=== PATIENT | female | born 1995 | race Caucasian/White ===

== ENCOUNTER 2017-10-31 20:00 | Emergency (ER) | payer MEDICAID ==
[2017-10-31 22:42] LABS: APPEARANCE CLEAR (CLEAR); BILIRUBIN NEGATIVE (NEGATIVE); COLOR YELLOW (YELLOW); GLUCOSE NEGATIVE (NEGATIVE); KETONE NEGATIVE (NEGATIVE); NITRITE NEGATIVE (NEGATIVE); PROTEIN NEGATIVE (NEGATIVE); SPECIFIC GRAVITY 1.015 (1.005-1.020); UROBILINOGEN NORMAL (NORMAL)
[2017-10-31 22:43] LABS: BACTERIA FEW /hpf (NONE SEEN); EPITHELIAL CELLS 0-5 /hpf (0-5); RED CELLS - URINE OCC /hpf (0-5); WHITE CELLS - URINE 0-5 /hpf (0-5)
== END 2017-10-31 23:06 | disposition home or self-care (01) ==
LOC: D.ER 20:00
PROVIDERS: Nurse Practitioner Family
DX: G89.18 Other acute postprocedural pain (principal); Z98.890 Other specified postprocedural states

== ENCOUNTER 2017-11-12 18:01 | Emergency (ER) | payer MEDICAID ==
[2017-11-12 19:12] LABS: BASOPHILS 0.2 % (0-2); EOSINOPHILS 4.4 % (0-7); HEMATOCRIT 40.3 % (36.0-48.0); HEMOGLOBIN 13.2 g/dL (12-16); IMMATURE GRANULOCYTES 0.2 % (0-5); MCH 29.7 pg (26.0-34.0); MCHC 32.8 g/dL (31.0-37.0); MCV 90.8 fL (80.0-100.0); MEAN PLATELET VOLUME 11.7 fL (7.4-10.4); MONOCYTES 6.8 % (2-11); NEUTROPHILS 65.4 % (40-80); PLATELET COUNT 255 10x3/uL (130-400); RBC 4.44 10x6/uL (4.00-5.40); RDW 12.8 % (11.5-14.5); WBC 10.9 10x3/uL (4.8-10.8)
[2017-11-12 19:23] LABS: HCG SERUM NEGATIVE (NEGATIVE)
== END 2017-11-12 22:59 | disposition home or self-care (01) ==
LOC: D.ER 18:01
PROVIDERS: Family Medicine
DX: R10.9 Unspecified abdominal pain (principal); K58.9 Irritable bowel syndrome, unspecified; F17.200 Nicotine dependence, unspecified, uncomplicated

== ENCOUNTER 2017-11-15 21:19 | Emergency (ER) | payer MEDICAID ==
[2017-11-15 22:14] LABS: BASOPHILS 0.2 % (0-2); EOSINOPHILS 5.4 % (0-7); HEMATOCRIT 38.2 % (36.0-48.0); HEMOGLOBIN 12.5 g/dL (12-16); IMMATURE GRANULOCYTES 0.1 % (0-5); LYMPHOCYTES 28.7 % (15-50); MCH 29.8 pg (26.0-34.0); MCHC 32.7 g/dL (31.0-37.0); MEAN PLATELET VOLUME 11.4 fL (7.4-10.4); MONOCYTES 5.2 % (2-11); NEUTROPHILS 60.4 % (40-80); PLATELET COUNT 242 10x3/uL (130-400); WBC 9.2 10x3/uL (4.8-10.8)
[2017-11-15 22:30] LABS: APPEARANCE CLEAR (CLEAR); BILIRUBIN NEGATIVE (NEGATIVE); COLOR YELLOW (YELLOW); GLUCOSE NEGATIVE (NEGATIVE); KETONE NEGATIVE (NEGATIVE); NITRITE NEGATIVE (NEGATIVE); PROTEIN NEGATIVE (NEGATIVE); SPECIFIC GRAVITY 1.015 (1.005-1.020); UROBILINOGEN NORMAL (NORMAL)
[2017-11-15 22:31] LABS: HCG SERUM NEGATIVE (NEGATIVE)
[2017-11-15 22:33] LABS: BACTERIA FEW /hpf (NONE SEEN)
[2017-11-16 00:57] LABS: UDS - AMPHET NEGATIVE QUAL (NEGATIVE); UDS - BARB NEGATIVE QUAL (NEGATIVE); UDS - BENZO NEGATIVE QUAL (NEGATIVE); UDS - COCAINE NEGATIVE QUAL (NEGATIVE); UDS - OPIATE POSITIVE QUAL (NEGATIVE); UDS - PCP NEGATIVE QUAL (NEGATIVE); UDS - THC NEGATIVE QUAL (NEGATIVE)
[2017-11-16 00:58] LABS: ALBUMIN 3.6 g/dL (3.4-5.0); ALKALINE PHOSPHATASE 101 U/L (46-116); ALT (SGPT) 37 U/L (10-68); CALC OSMOLALITY 279 mosm/kg (275-300); CALCIUM 8.6 mg/dL (8.5-10.1); CARBON DIOXIDE 28.7 mmol/L (21.0-32.0); CHLORIDE - SERUM 104 mmol/L (98-107); CREATININE - SERUM 0.8 mg/dL (0.6-1.3); GLUCOSE 95 mg/dL (74-106); LIPASE 103 U/L (73-393); POTASSIUM - SERUM 3.9 mmol/L (3.5-5.1); PROTEIN - SERUM 7.1 g/dL (6.4-8.2); SODIUM 140 mmol/L (136-145); UREA NITROGEN 14 mg/dL (7-18); eGFR NON AFRICAN AMERICAN > 90 mL/min (90-120)
== END 2017-11-16 03:30 | disposition home or self-care (01) ==
LOC: D.ER 21:19
PROVIDERS: Family Medicine
DX: R10.9 Unspecified abdominal pain (principal)

== ENCOUNTER 2017-12-04 08:21 | Emergency (ER) | payer MEDICAID ==
[2017-12-04 09:05] LABS: BASOPHILS 0.1 % (0-2); EOSINOPHILS 2.4 % (0-7); HEMATOCRIT 40.9 % (36.0-48.0); HEMOGLOBIN 13.5 g/dL (12-16); IMMATURE GRANULOCYTES 0.2 % (0-5); LYMPHOCYTES 22.7 % (15-50); MCH 29.5 pg (26.0-34.0); MCV 89.5 fL (80.0-100.0); MEAN PLATELET VOLUME 11.4 fL (7.4-10.4); MONOCYTES 7.8 % (2-11); NEUTROPHILS 66.8 % (40-80); PLATELET COUNT 278 10x3/uL (130-400); RBC 4.57 10x6/uL (4.00-5.40); WBC 8.6 10x3/uL (4.8-10.8)
[2017-12-04 09:26] LABS: APPEARANCE CLEAR (CLEAR); BILIRUBIN NEGATIVE (NEGATIVE); COLOR YELLOW (YELLOW); GLUCOSE NEGATIVE (NEGATIVE); KETONE NEGATIVE (NEGATIVE); NITRITE NEGATIVE (NEGATIVE); PROTEIN NEGATIVE (NEGATIVE); UROBILINOGEN NORMAL (NORMAL)
== END 2017-12-04 09:58 | disposition home or self-care (01) ==
LOC: D.ER 08:21
PROVIDERS: Emergency Medicine
DX: R11.10 Vomiting, unspecified (principal); R19.7 Diarrhea, unspecified; R10.9 Unspecified abdominal pain

== ENCOUNTER 2017-12-09 19:23 | Emergency (ER) | payer SELFPAY ==
[2017-12-09 20:18] LABS: BASOPHILS 0.3 % (0-2); EOSINOPHILS 3.8 % (0-7); HEMATOCRIT 42.2 % (36.0-48.0); HEMOGLOBIN 13.8 g/dL (12-16); IMMATURE GRANULOCYTES 0.1 % (0-5); LYMPHOCYTES 26.2 % (15-50); MCH 29.3 pg (26.0-34.0); MCHC 32.7 g/dL (31.0-37.0); MCV 89.6 fL (80.0-100.0); MEAN PLATELET VOLUME 11.7 fL (7.4-10.4); NEUTROPHILS 62.6 % (40-80); PLATELET COUNT 247 10x3/uL (130-400); RBC 4.71 10x6/uL (4.00-5.40); RDW 12.7 % (11.5-14.5)
[2017-12-09 20:53] LABS: APPEARANCE CLEAR (CLEAR); BILIRUBIN NEGATIVE (NEGATIVE); COLOR YELLOW (YELLOW); GLUCOSE NEGATIVE (NEGATIVE); KETONE NEGATIVE (NEGATIVE); NITRITE NEGATIVE (NEGATIVE); PROTEIN NEGATIVE (NEGATIVE); SPECIFIC GRAVITY 1.015 (1.005-1.020); UROBILINOGEN NORMAL (NORMAL)
[2017-12-09 21:03] LABS: HCG URINE NEGATIVE (NEGATIVE)
== END 2017-12-09 21:57 | disposition home or self-care (01) ==
LOC: D.ER 19:23
PROVIDERS: Family Medicine; Nurse Practitioner Family
DX: R10.9 Unspecified abdominal pain (principal); K59.00 Constipation, unspecified

== ENCOUNTER 2017-12-20 18:55 | Emergency (ER) | payer MEDICAID | END 2017-12-20 20:19 | disposition left against medical advice (07) | LOC: D.ER 18:55 | DX: R04.0 Epistaxis (principal) ==

== ENCOUNTER 2017-12-26 19:01 | Emergency (ER) | payer MEDICAID ==
[2017-12-26 19:36] LABS: BASOPHILS 0.1 % (0-2); HEMATOCRIT 40.9 % (36.0-48.0); HEMOGLOBIN 13.6 g/dL (12-16); IMMATURE GRANULOCYTES 0.2 % (0-5); LYMPHOCYTES 23.4 % (15-50); MCH 28.9 pg (26.0-34.0); MCHC 33.3 g/dL (31.0-37.0); MCV 86.8 fL (80.0-100.0); MEAN PLATELET VOLUME 11.3 fL (7.4-10.4); MONOCYTES 6.1 % (2-11); NEUTROPHILS 67.2 % (40-80); PLATELET COUNT 258 10x3/uL (130-400); RBC 4.71 10x6/uL (4.00-5.40); RDW 12.7 % (11.5-14.5); WBC 11.2 10x3/uL (4.8-10.8)
[2017-12-26 19:40] LABS: APPEARANCE HAZY (CLEAR); BILIRUBIN NEGATIVE (NEGATIVE); COLOR YELLOW (YELLOW); GLUCOSE NEGATIVE (NEGATIVE); KETONE NEGATIVE (NEGATIVE); NITRITE NEGATIVE (NEGATIVE); PROTEIN NEGATIVE (NEGATIVE); UROBILINOGEN NORMAL (NORMAL)
[2017-12-26 19:41] LABS: BACTERIA NONE SEEN /hpf (NONE SEEN); EPITHELIAL CELLS 0-5 /hpf (0-5); RED CELLS - URINE >50 /hpf (0-5); WHITE CELLS - URINE 0-5 /hpf (0-5)
[2017-12-26 19:48] LABS: ALBUMIN 3.8 g/dL (3.4-5.0); ALKALINE PHOSPHATASE 106 U/L (46-116); ALT (SGPT) 26 U/L (10-68); BILIRUBIN - TOTAL 0.19 mg/dL (0.2-1.3); CALC OSMOLALITY 277 mosm/kg (275-300); CALCIUM 9.1 mg/dL (8.5-10.1); CARBON DIOXIDE 29.5 mmol/L (21.0-32.0); CHLORIDE - SERUM 104 mmol/L (98-107); CREATININE - SERUM 0.7 mg/dL (0.6-1.3); GLUCOSE 91 mg/dL (74-106); POTASSIUM - SERUM 3.6 mmol/L (3.5-5.1); PROTEIN - SERUM 7.8 g/dL (6.4-8.2); SODIUM 140 mmol/L (136-145); UREA NITROGEN 9 mg/dL (7-18); eGFR NON AFRICAN AMERICAN > 90 mL/min (90-120)
[2017-12-26 19:49] LABS: HCG SERUM NEGATIVE (NEGATIVE)
[2017-12-26 22:34] LABS: APPEARANCE CLEAR (CLEAR); BILIRUBIN NEGATIVE (NEGATIVE); COLOR YELLOW (YELLOW); GLUCOSE NEGATIVE (NEGATIVE); KETONE NEGATIVE (NEGATIVE); NITRITE NEGATIVE (NEGATIVE); PROTEIN NEGATIVE (NEGATIVE); SPECIFIC GRAVITY 1.015 (1.005-1.020); UROBILINOGEN NORMAL (NORMAL)
== END 2017-12-26 22:59 | disposition home or self-care (01) ==
LOC: D.ER 19:01
PROVIDERS: Emergency Medicine
DX: N80.9 Endometriosis, unspecified (principal); F17.200 Nicotine dependence, unspecified, uncomplicated

== ENCOUNTER 2018-01-09 10:12 | Emergency (ER) | payer MEDICAID ==
[2018-01-09 11:12] LABS: BASOPHILS 0.3 % (0-2); EOSINOPHILS 2.9 % (0-7); HEMATOCRIT 38.8 % (36.0-48.0); HEMOGLOBIN 12.8 g/dL (12-16); IMMATURE GRANULOCYTES 0.1 % (0-5); LYMPHOCYTES 24.5 % (15-50); MCH 28.7 pg (26.0-34.0); MEAN PLATELET VOLUME 11.4 fL (7.4-10.4); MONOCYTES 7.4 % (2-11); NEUTROPHILS 64.8 % (40-80); PLATELET COUNT 234 10x3/uL (130-400); RBC 4.46 10x6/uL (4.00-5.40); WBC 7.6 10x3/uL (4.8-10.8)
[2018-01-09 11:20] LABS: ALBUMIN 3.6 g/dL (3.4-5.0); ALKALINE PHOSPHATASE 101 U/L (46-116); ALT (SGPT) 36 U/L (10-68); BILIRUBIN - TOTAL 0.23 mg/dL (0.2-1.3); CALC OSMOLALITY 279 mosm/kg (275-300); CALCIUM 8.6 mg/dL (8.5-10.1); CARBON DIOXIDE 24.2 mmol/L (21.0-32.0); CHLORIDE - SERUM 104 mmol/L (98-107); CREATININE - SERUM 0.8 mg/dL (0.6-1.3); GLUCOSE 101 mg/dL (74-106); POTASSIUM - SERUM 3.9 mmol/L (3.5-5.1); PROTEIN - SERUM 7.2 g/dL (6.4-8.2); SODIUM 141 mmol/L (136-145); UREA NITROGEN 9 mg/dL (7-18); eGFR NON AFRICAN AMERICAN > 90 mL/min (90-120)
[2018-01-09 11:26] LABS: APPEARANCE SLT CLOUDY (CLEAR); BILIRUBIN NEGATIVE (NEGATIVE); COLOR YELLOW (YELLOW); GLUCOSE NEGATIVE (NEGATIVE); KETONE NEGATIVE (NEGATIVE); NITRITE NEGATIVE (NEGATIVE); PROTEIN NEGATIVE (NEGATIVE); SPECIFIC GRAVITY 1.015 (1.005-1.020); UROBILINOGEN NORMAL (NORMAL)
[2018-01-09 11:27] LABS: BACTERIA MODERATE /hpf (NONE SEEN); MUCUS >1+ /lpf (NONE SEEN); RED CELLS - URINE RARE /hpf (0-5)
[2018-01-09 11:29] LABS: HCG - QUANTITATIVE (MATERNAL) 1 mIU/mL; LIPASE 59 U/L (73-393)
== END 2018-01-09 12:46 | disposition home or self-care (01) ==
LOC: D.ER 10:12
PROVIDERS: Emergency Medicine
DX: R10.11 Right upper quadrant pain (principal); N39.0 Urinary tract infection, site not specified; F17.200 Nicotine dependence, unspecified, uncomplicated

== ENCOUNTER 2018-01-14 17:14 | Emergency (ER) | payer MEDICAID | END 2018-01-14 19:03 | disposition left against medical advice (07) | LOC: D.ER 17:14 | DX: R51 Headache (principal) ==

== ENCOUNTER 2018-01-20 21:28 | Emergency (ER) | payer MEDICAID ==
[2018-01-20 22:43] LABS: BASOPHILS 0.2 % (0-2); EOSINOPHILS 3.4 % (0-7); HEMATOCRIT 41.6 % (36.0-48.0); HEMOGLOBIN 13.9 g/dL (12-16); IMMATURE GRANULOCYTES 0.2 % (0-5); LYMPHOCYTES 34.1 % (15-50); MCHC 33.4 g/dL (31.0-37.0); MCV 86.8 fL (80.0-100.0); MEAN PLATELET VOLUME 11.5 fL (7.4-10.4); MONOCYTES 7.8 % (2-11); NEUTROPHILS 54.3 % (40-80); PLATELET COUNT 241 10x3/uL (130-400); RBC 4.79 10x6/uL (4.00-5.40); RDW 13.5 % (11.5-14.5); WBC 8.6 10x3/uL (4.8-10.8)
[2018-01-20 22:45] LABS: APPEARANCE CLEAR (CLEAR); BILIRUBIN NEGATIVE (NEGATIVE); COLOR YELLOW (YELLOW); GLUCOSE NEGATIVE (NEGATIVE); KETONE NEGATIVE (NEGATIVE); NITRITE NEGATIVE (NEGATIVE); PROTEIN NEGATIVE (NEGATIVE); SPECIFIC GRAVITY 1.015 (1.005-1.020); UROBILINOGEN NORMAL (NORMAL)
[2018-01-20 22:54] LABS: HCG SERUM NEGATIVE (NEGATIVE)
[2018-01-20 23:01] LABS: ALBUMIN 3.9 g/dL (3.4-5.0); ALKALINE PHOSPHATASE 112 U/L (46-116); ALT (SGPT) 32 U/L (10-68); AMYLASE - SERUM 33 U/L (25-115); BILIRUBIN - TOTAL 0.25 mg/dL (0.2-1.3); CALC OSMOLALITY 280 mosm/kg (275-300); CARBON DIOXIDE 27.7 mmol/L (21.0-32.0); CHLORIDE - SERUM 103 mmol/L (98-107); CREATININE - SERUM 0.7 mg/dL (0.6-1.3); GLUCOSE 89 mg/dL (74-106); LIPASE 90 U/L (73-393); POTASSIUM - SERUM 3.7 mmol/L (3.5-5.1); PROTEIN - SERUM 7.9 g/dL (6.4-8.2); SODIUM 141 mmol/L (136-145); UREA NITROGEN 14 mg/dL (7-18); eGFR NON AFRICAN AMERICAN > 90 mL/min (90-120)
== END 2018-01-21 02:27 | disposition home or self-care (01) ==
LOC: D.ER 21:28
PROVIDERS: Family Medicine
DX: N83.209 Unspecified ovarian cyst, unspecified side (principal); K59.00 Constipation, unspecified

== ENCOUNTER 2018-01-27 20:44 | Emergency (ER) | payer MEDICAID | END 2018-01-27 21:55 | disposition home or self-care (01) | LOC: D.ER 20:44 | DX: L02.31 Cutaneous abscess of buttock (principal); F17.200 Nicotine dependence, unspecified, uncomplicated ==

== ENCOUNTER 2018-02-05 23:36 | Emergency (ER) | payer MEDICAID | END 2018-02-06 01:07 | disposition home or self-care (01) | LOC: D.ER 23:36 | DX: R07.89 Other chest pain (principal); F17.200 Nicotine dependence, unspecified, uncomplicated ==

== ENCOUNTER 2018-02-06 14:19 | Emergency (ER) | payer MEDICAID | END 2018-02-06 16:13 | disposition left against medical advice (07) | LOC: D.ER 14:19 | DX: Z02.9 Encounter for administrative examinations, unspecified (principal) ==

== ENCOUNTER 2018-02-09 19:11 | Emergency (ER) | payer MEDICAID ==
[2018-02-09 19:38] LABS: BASOPHILS 0.1 % (0-2); EOSINOPHILS 2.9 % (0-7); HEMATOCRIT 42.2 % (36.0-48.0); HEMOGLOBIN 14.1 g/dL (12-16); IMMATURE GRANULOCYTES 0.1 % (0-5); LYMPHOCYTES 23.5 % (15-50); MCHC 33.4 g/dL (31.0-37.0); MCV 86.7 fL (80.0-100.0); MEAN PLATELET VOLUME 11.5 fL (7.4-10.4); NEUTROPHILS 64.4 % (40-80); PLATELET COUNT 225 10x3/uL (130-400); RBC 4.87 10x6/uL (4.00-5.40); RDW 13.5 % (11.5-14.5); WBC 8.7 10x3/uL (4.8-10.8)
[2018-02-09 19:53] LABS: ALKALINE PHOSPHATASE 108 U/L (46-116); ALT (SGPT) 38 U/L (10-68); CALC OSMOLALITY 280 mosm/kg (275-300); CALCIUM 9.8 mg/dL (8.5-10.1); CHLORIDE - SERUM 106 mmol/L (98-107); CREATININE - SERUM 0.9 mg/dL (0.6-1.3); GLUCOSE 87 mg/dL (74-106); POTASSIUM - SERUM 4.2 mmol/L (3.5-5.1); PROTEIN - SERUM 7.9 g/dL (6.4-8.2); SODIUM 141 mmol/L (136-145); UREA NITROGEN 16 mg/dL (7-18); eGFR NON AFRICAN AMERICAN 83 mL/min (90-120)
[2018-02-09 21:22] LABS: APPEARANCE HAZY (CLEAR); BILIRUBIN NEGATIVE (NEGATIVE); COLOR YELLOW (YELLOW); GLUCOSE NEGATIVE (NEGATIVE); KETONE NEGATIVE (NEGATIVE); NITRITE NEGATIVE (NEGATIVE); PROTEIN NEGATIVE (NEGATIVE); SPECIFIC GRAVITY 1.015 (1.005-1.020); UROBILINOGEN NORMAL (NORMAL)
[2018-02-09 21:24] LABS: HCG URINE NEGATIVE (NEGATIVE)
[2018-02-09 21:28] LABS: UDS - AMPHET NEGATIVE QUAL (NEGATIVE); UDS - BARB NEGATIVE QUAL (NEGATIVE); UDS - BENZO NEGATIVE QUAL (NEGATIVE); UDS - COCAINE NEGATIVE QUAL (NEGATIVE); UDS - OPIATE NEGATIVE QUAL (NEGATIVE); UDS - PCP NEGATIVE QUAL (NEGATIVE); UDS - THC NEGATIVE QUAL (NEGATIVE)
== END 2018-02-09 22:24 | disposition home or self-care (01) ==
LOC: D.ER 19:11
PROVIDERS: Family Medicine
DX: K59.00 Constipation, unspecified (principal); F17.200 Nicotine dependence, unspecified, uncomplicated

== ENCOUNTER 2018-02-19 22:45 | Emergency (ER) | payer MEDICAID ==
[2018-02-19 23:26] LABS: APPEARANCE HAZY (CLEAR); BILIRUBIN NEGATIVE (NEGATIVE); COLOR YELLOW (YELLOW); GLUCOSE NEGATIVE (NEGATIVE); KETONE NEGATIVE (NEGATIVE); NITRITE NEGATIVE (NEGATIVE); PROTEIN 1+ mg/dL (NEGATIVE); UROBILINOGEN NORMAL (NORMAL)
[2018-02-19 23:26] LABS: HEMATOCRIT 38.4 % (36.0-48.0); HEMOGLOBIN 13.2 g/dL (12-16); LYMPHOCYTES 28.9 % (15-50); MCH 28.9 pg (26.0-34.0); MCHC 34.4 g/dL (31.0-37.0); MCV 84.2 fL (80.0-100.0); MEAN PLATELET VOLUME 11.4 fL (7.4-10.4); NEUTROPHILS 64.3 % (40-80); PLATELET COUNT 185 10x3/uL (130-400); RBC 4.56 10x6/uL (4.00-5.40); RDW 13.7 % (11.5-14.5); WBC 10.5 10x3/uL (4.8-10.8)
[2018-02-19 23:27] LABS: UDS - AMPHET NEGATIVE QUAL (NEGATIVE); UDS - BARB NEGATIVE QUAL (NEGATIVE); UDS - BENZO NEGATIVE QUAL (NEGATIVE); UDS - COCAINE NEGATIVE QUAL (NEGATIVE); UDS - OPIATE NEGATIVE QUAL (NEGATIVE); UDS - PCP NEGATIVE QUAL (NEGATIVE); UDS - THC NEGATIVE QUAL (NEGATIVE)
[2018-02-19 23:28] LABS: BACTERIA MODERATE /hpf (NONE SEEN); EPITHELIAL CELLS 0-5 /hpf (0-5); MUCUS >1+ /lpf (NONE SEEN); RED CELLS - URINE NONE SEEN /hpf (0-5); WHITE CELLS - URINE 0-5 /hpf (0-5)
[2018-02-19 23:39] LABS: HCG URINE NEGATIVE (NEGATIVE)
[2018-02-19 23:41] LABS: ALBUMIN 3.6 g/dL (3.4-5.0); ALKALINE PHOSPHATASE 98 U/L (46-116); ALT (SGPT) 30 U/L (10-68); BILIRUBIN - TOTAL 0.37 mg/dL (0.2-1.3); CALC OSMOLALITY 280 mosm/kg (275-300); CALCIUM 8.7 mg/dL (8.5-10.1); CARBON DIOXIDE 28.1 mmol/L (21.0-32.0); CHLORIDE - SERUM 103 mmol/L (98-107); CREATININE - SERUM 0.7 mg/dL (0.6-1.3); GLUCOSE 99 mg/dL (74-106); POTASSIUM - SERUM 3.6 mmol/L (3.5-5.1); PROTEIN - SERUM 7.2 g/dL (6.4-8.2); SODIUM 141 mmol/L (136-145); UREA NITROGEN 12 mg/dL (7-18); eGFR NON AFRICAN AMERICAN > 90 mL/min (90-120)
[2018-02-20 00:08] LABS: AMYLASE - SERUM 35 U/L (25-115); LIPASE 76 U/L (73-393)
== END 2018-02-20 01:42 | disposition home or self-care (01) ==
LOC: D.ER 22:45
PROVIDERS: Family Medicine; Nurse Practitioner Family
DX: K59.00 Constipation, unspecified (principal); R11.0 Nausea; N83.202 Unspecified ovarian cyst, left side

== ENCOUNTER 2018-02-21 19:25 | Emergency (ER) | payer MEDICAID ==
[2018-02-21 19:52] LABS: APPEARANCE CLEAR (CLEAR); BILIRUBIN NEGATIVE (NEGATIVE); COLOR YELLOW (YELLOW); GLUCOSE NEGATIVE (NEGATIVE); KETONE NEGATIVE (NEGATIVE); NITRITE NEGATIVE (NEGATIVE); PROTEIN NEGATIVE (NEGATIVE); SPECIFIC GRAVITY 1.015 (1.005-1.020); UROBILINOGEN NORMAL (NORMAL)
[2018-02-21 20:15] LABS: BASOPHILS 0.2 % (0-2); EOSINOPHILS 3.6 % (0-7); HEMATOCRIT 38.3 % (36.0-48.0); HEMOGLOBIN 12.7 g/dL (12-16); IMMATURE GRANULOCYTES 0.2 % (0-5); LYMPHOCYTES 24.5 % (15-50); MCH 28.5 pg (26.0-34.0); MCHC 33.2 g/dL (31.0-37.0); MCV 85.9 fL (80.0-100.0); MEAN PLATELET VOLUME 11.5 fL (7.4-10.4); MONOCYTES 8.8 % (2-11); NEUTROPHILS 62.7 % (40-80); PLATELET COUNT 179 10x3/uL (130-400); RBC 4.46 10x6/uL (4.00-5.40); RDW 13.7 % (11.5-14.5); WBC 8.1 10x3/uL (4.8-10.8)
[2018-02-21 20:24] LABS: HCG SERUM NEGATIVE (NEGATIVE)
== END 2018-02-21 21:31 | disposition home or self-care (01) ==
LOC: D.ER 19:25
PROVIDERS: Family Medicine
DX: R10.32 Left lower quadrant pain (principal); F17.200 Nicotine dependence, unspecified, uncomplicated

== ENCOUNTER 2018-02-28 01:08 | Emergency (ER) | payer MEDICAID | END 2018-02-28 03:10 | disposition home or self-care (01) | LOC: D.ER 01:08 | DX: J06.9 Acute upper respiratory infection, unspecified (principal); F17.200 Nicotine dependence, unspecified, uncomplicated ==

== ENCOUNTER 2018-03-03 22:56 | Emergency (ER) | payer MEDICAID ==
[2018-03-04 00:01] LABS: AMORPHOUS SEDIMENT >1+ /lpf (NONE SEEN); APPEARANCE TURBID (CLEAR); BACTERIA NONE SEEN /hpf (NONE SEEN); BILIRUBIN NEGATIVE (NEGATIVE); COLOR YELLOW (YELLOW); EPITHELIAL CELLS 0-5 /hpf (0-5); GLUCOSE NEGATIVE (NEGATIVE); KETONE NEGATIVE (NEGATIVE); NITRITE NEGATIVE (NEGATIVE); PROTEIN TRACE mg/dL (NEGATIVE); RED CELLS - URINE 0-5 /hpf (0-5); UROBILINOGEN NORMAL (NORMAL); WHITE CELLS - URINE 0-5 /hpf (0-5)
[2018-03-04 00:02] LABS: BASOPHILS 0.2 % (0-2); EOSINOPHILS 1.5 % (0-7); HEMATOCRIT 42.5 % (36.0-48.0); HEMOGLOBIN 14.4 g/dL (12-16); LYMPHOCYTES 20.8 % (15-50); MCHC 33.9 g/dL (31.0-37.0); MCV 85.7 fL (80.0-100.0); MEAN PLATELET VOLUME 11.7 fL (7.4-10.4); MONOCYTES 9.1 % (2-11); NEUTROPHILS 68.4 % (40-80); PLATELET COUNT 226 10x3/uL (130-400); RBC 4.96 10x6/uL (4.00-5.40); WBC 4.5 10x3/uL (4.8-10.8)
[2018-03-04 00:06] LABS: HCG URINE NEGATIVE (NEGATIVE)
[2018-03-04 00:21] LABS: ALBUMIN 3.8 g/dL (3.4-5.0); ALKALINE PHOSPHATASE 89 U/L (46-116); ALT (SGPT) 32 U/L (10-68); BILIRUBIN - TOTAL 0.49 mg/dL (0.2-1.3); CALC OSMOLALITY 274 mosm/kg (275-300); CALCIUM 8.9 mg/dL (8.5-10.1); CARBON DIOXIDE 27.1 mmol/L (21.0-32.0); CHLORIDE - SERUM 102 mmol/L (98-107); CREATININE - SERUM 0.8 mg/dL (0.6-1.3); GLUCOSE 100 mg/dL (74-106); POTASSIUM - SERUM 3.7 mmol/L (3.5-5.1); PROTEIN - SERUM 7.9 g/dL (6.4-8.2); SODIUM 137 mmol/L (136-145); UREA NITROGEN 15 mg/dL (7-18); eGFR NON AFRICAN AMERICAN > 90 mL/min (90-120)
== END 2018-03-04 01:10 | disposition home or self-care (01) ==
LOC: D.ER 22:56
PROVIDERS: Nurse Practitioner Family
DX: A08.4 Viral intestinal infection, unspecified (principal); F17.200 Nicotine dependence, unspecified, uncomplicated; R11.2 Nausea with vomiting, unspecified

== ENCOUNTER 2018-03-10 23:45 | Emergency (ER) | payer MEDICAID ==
[2018-03-11 00:48] LABS: BASOPHILS 0.4 % (0-2); EOSINOPHILS 2.4 % (0-7); HEMATOCRIT 40.4 % (36.0-48.0); HEMOGLOBIN 13.4 g/dL (12-16); IMMATURE GRANULOCYTES 0.1 % (0-5); LYMPHOCYTES 30.6 % (15-50); MCH 28.7 pg (26.0-34.0); MCHC 33.2 g/dL (31.0-37.0); MCV 86.5 fL (80.0-100.0); MEAN PLATELET VOLUME 11.8 fL (7.4-10.4); MONOCYTES 6.8 % (2-11); NEUTROPHILS 59.7 % (40-80); PLATELET COUNT 254 10x3/uL (130-400); RBC 4.67 10x6/uL (4.00-5.40); RDW 13.8 % (11.5-14.5)
[2018-03-11 00:50] LABS: APPEARANCE CLEAR (CLEAR); BILIRUBIN NEGATIVE (NEGATIVE); COLOR YELLOW (YELLOW); GLUCOSE NEGATIVE (NEGATIVE); KETONE SMALL mg/dL (NEGATIVE); NITRITE NEGATIVE (NEGATIVE); PROTEIN NEGATIVE (NEGATIVE); UROBILINOGEN NORMAL (NORMAL)
[2018-03-11 00:54] LABS: HCG SERUM NEGATIVE (NEGATIVE)
[2018-03-11 01:04] LABS: ALBUMIN 3.7 g/dL (3.4-5.0); ALKALINE PHOSPHATASE 87 U/L (46-116); ALT (SGPT) 36 U/L (10-68); BILIRUBIN - TOTAL 0.33 mg/dL (0.2-1.3); CALC OSMOLALITY 282 mosm/kg (275-300); CALCIUM 9.3 mg/dL (8.5-10.1); CARBON DIOXIDE 30.6 mmol/L (21.0-32.0); CHLORIDE - SERUM 103 mmol/L (98-107); CREATININE - SERUM 0.7 mg/dL (0.6-1.3); GLUCOSE 125 mg/dL (74-106); POTASSIUM - SERUM 3.6 mmol/L (3.5-5.1); PROTEIN - SERUM 7.7 g/dL (6.4-8.2); SODIUM 142 mmol/L (136-145); UREA NITROGEN 9 mg/dL (7-18); eGFR NON AFRICAN AMERICAN > 90 mL/min (90-120)
== END 2018-03-11 01:31 | disposition home or self-care (01) ==
LOC: D.ER 23:45
PROVIDERS: Family Medicine
DX: N76.0 Acute vaginitis (principal); F17.200 Nicotine dependence, unspecified, uncomplicated

== ENCOUNTER 2018-03-22 18:55 | Emergency (ER) | payer MEDICAID ==
[~2018-03-22] VITALS: Ht 157.5 cm; Wt 81.8 kg
[2018-03-22 19:20] VITALS: Ht 157.5 cm; Wt 81.8 kg
[2018-03-22] MEDS ORDERED: PHENAZOPYRIDIN100 MG PO (19:23)
[2018-03-22 19:41] LABS: HCG URINE NEGATIVE (NEGATIVE)
[2018-03-22 19:46] LABS: APPEARANCE CLEAR (CLEAR); BILIRUBIN NEGATIVE (NEGATIVE); COLOR YELLOW (YELLOW); EPITHELIAL CELLS 0-5 /hpf (0-5); GLUCOSE NEGATIVE (NEGATIVE); KETONE NEGATIVE (NEGATIVE); NITRITE NEGATIVE (NEGATIVE); PROTEIN NEGATIVE (NEGATIVE); RED CELLS - URINE 0-5 /hpf (0-5); UROBILINOGEN NORMAL (NORMAL)
[2018-03-22 19:47] LABS: BACTERIA MANY /hpf (NONE SEEN)
[2018-03-22] MEDS ORDERED: TORADOL10 MG PO (22:39)
[2018-03-22] MEDS ORDERED: MACROBID100 MG PO (22:39)
[2018-03-23 04:55] VITALS: BP 119/75
[2018-03-27 10:20] LABS: CHLAMYDIA TRACHOMATIS, NAA Negative (Negative)
== END 2018-03-22 23:54 | disposition home or self-care (01) ==
LOC: D.ER 18:55
PROVIDERS: Family Medicine
DX: N39.0 Urinary tract infection, site not specified (principal); N76.0 Acute vaginitis; B96.89 Other specified bacterial agents as the cause of diseases classified elsewhere; F17.200 Nicotine dependence, unspecified, uncomplicated

== ENCOUNTER 2018-04-13 20:47 | Emergency (ER) | payer MEDICAID ==
[~2018-04-13] VITALS: Ht 157.5 cm; Wt 84.5 kg
[~2018-04-13 20:47] MED LIST: MACROBID100 MG PO; PHENAZOPYRIDIN100 MG PO; TORADOL10 MG PO
[2018-04-13 20:59] VITALS: Ht 157.5 cm; Wt 84.5 kg
[2018-04-13 22:16] LABS: BASOPHILS 0.1 % (0-2); EOSINOPHILS 1.8 % (0-7); HEMATOCRIT 42.6 % (36.0-48.0); HEMOGLOBIN 14.4 g/dL (12-16); IMMATURE GRANULOCYTES 0.2 % (0-5); LYMPHOCYTES 30.4 % (15-50); MCH 29.1 pg (26.0-34.0); MCHC 33.8 g/dL (31.0-37.0); MCV 86.1 fL (80.0-100.0); MEAN PLATELET VOLUME 12.5 fL (7.4-10.4); MONOCYTES 8.3 % (2-11); NEUTROPHILS 59.2 % (40-80); PLATELET COUNT 216 10x3/uL (130-400); RBC 4.95 10x6/uL (4.00-5.40); RDW 13.5 % (11.5-14.5); WBC 8.7 10x3/uL (4.8-10.8)
[2018-04-13 22:30] LABS: ALBUMIN 4.2 g/dL (3.4-5.0); ALKALINE PHOSPHATASE 100 U/L (46-116); ALT (SGPT) 52 U/L (10-68); BILIRUBIN - TOTAL 0.41 mg/dL (0.2-1.3); CALC OSMOLALITY 278 mosm/kg (275-300); CALCIUM 9.5 mg/dL (8.5-10.1); CARBON DIOXIDE 29.4 mmol/L (21.0-32.0); CHLORIDE - SERUM 104 mmol/L (98-107); CREATININE - SERUM 0.7 mg/dL (0.6-1.3); GLUCOSE 91 mg/dL (74-106); LIPASE 63 U/L (73-393); POTASSIUM - SERUM 4.5 mmol/L (3.5-5.1); PROTEIN - SERUM 8.1 g/dL (6.4-8.2); SODIUM 140 mmol/L (136-145); UREA NITROGEN 12 mg/dL (7-18); eGFR NON AFRICAN AMERICAN > 90 mL/min (90-120)
[2018-04-13 22:42] LABS: APPEARANCE CLOUDY (CLEAR); BILIRUBIN NEGATIVE (NEGATIVE); COLOR YELLOW (YELLOW); GLUCOSE NEGATIVE (NEGATIVE); HCG URINE NEGATIVE (NEGATIVE); KETONE NEGATIVE (NEGATIVE); NITRITE NEGATIVE (NEGATIVE); PROTEIN TRACE mg/dL (NEGATIVE); UROBILINOGEN NORMAL (NORMAL)
[2018-04-13 22:47] LABS: BACTERIA MODERATE /hpf (NONE SEEN); HYALINE CAST OCC /lpf (NONE SEEN); MUCUS >1+ /lpf (NONE SEEN); RED CELLS - URINE RARE /hpf (0-5); WHITE CELLS - URINE 0-5 /hpf (0-5)
[2018-04-14] MEDS ORDERED: ZOFRAN ODT4 MG/UDTAB PO (02:40)
[2018-04-14 03:01] VITALS: BP 121/70
== END 2018-04-14 03:02 | disposition home or self-care (01) ==
LOC: D.ER 20:47
PROVIDERS: Family Medicine
DX: R10.9 Unspecified abdominal pain (principal); R11.2 Nausea with vomiting, unspecified; F17.200 Nicotine dependence, unspecified, uncomplicated

== ENCOUNTER 2018-04-17 19:48 | Emergency (ER) | payer MEDICAID ==
[~2018-04-17] VITALS: Ht 157.5 cm; Wt 84.1 kg
[~2018-04-17 19:48] MED LIST changes: +ZOFRAN ODT4 MG/UDTAB PO
[2018-04-17 20:08] VITALS: Ht 157.5 cm; Wt 84.1 kg
[2018-04-17 20:33] LABS: BASOPHILS 0.3 % (0-2); EOSINOPHILS 1.4 % (0-7); HEMATOCRIT 42.4 % (36.0-48.0); HEMOGLOBIN 14.5 g/dL (12-16); IMMATURE GRANULOCYTES 0.1 % (0-5); MCH 29.1 pg (26.0-34.0); MCHC 34.2 g/dL (31.0-37.0); MEAN PLATELET VOLUME 11.9 fL (7.4-10.4); MONOCYTES 4.9 % (2-11); NEUTROPHILS 72.3 % (40-80); PLATELET COUNT 207 10x3/uL (130-400); RBC 4.99 10x6/uL (4.00-5.40); RDW 13.4 % (11.5-14.5); WBC 7.8 10x3/uL (4.8-10.8)
[2018-04-17 20:36] LABS: APPEARANCE CLEAR (CLEAR); BILIRUBIN NEGATIVE (NEGATIVE); COLOR DK YELLOW (YELLOW); GLUCOSE NEGATIVE (NEGATIVE); KETONE NEGATIVE (NEGATIVE); NITRITE NEGATIVE (NEGATIVE); PROTEIN NEGATIVE (NEGATIVE); SPECIFIC GRAVITY 1.025 (1.005-1.020); UROBILINOGEN NORMAL (NORMAL)
[2018-04-17 20:46] LABS: ALKALINE PHOSPHATASE 100 U/L (46-116); ALT (SGPT) 40 U/L (10-68); BILIRUBIN - TOTAL 0.45 mg/dL (0.2-1.3); CALC OSMOLALITY 273 mosm/kg (275-300); CALCIUM 9.2 mg/dL (8.5-10.1); CARBON DIOXIDE 27.8 mmol/L (21.0-32.0); CHLORIDE - SERUM 103 mmol/L (98-107); CREATININE - SERUM 0.9 mg/dL (0.6-1.3); GLUCOSE 86 mg/dL (74-106); POTASSIUM - SERUM 3.8 mmol/L (3.5-5.1); PROTEIN - SERUM 7.9 g/dL (6.4-8.2); SODIUM 138 mmol/L (136-145); UREA NITROGEN 11 mg/dL (7-18); eGFR NON AFRICAN AMERICAN 83 mL/min (90-120)
[2018-04-17 21:00] LABS: AMYLASE - SERUM 27 U/L (25-115); HCG - QUANTITATIVE (MATERNAL) 0 mIU/mL; LIPASE 62 U/L (73-393)
[2018-04-17] MEDS ORDERED: BENTYL 20 MG TA20 MG PO (21:45)
[2018-04-18 01:49] VITALS: BP 114/78
== END 2018-04-17 21:55 | disposition home or self-care (01) ==
LOC: D.ER 19:48
PROVIDERS: Emergency Medicine
DX: R10.9 Unspecified abdominal pain (principal); K58.9 Irritable bowel syndrome, unspecified; F17.200 Nicotine dependence, unspecified, uncomplicated

== ENCOUNTER 2018-04-27 20:39 | Emergency (ER) | payer MEDICAID ==
[~2018-04-27] VITALS: Ht 157.5 cm; Wt 84.5 kg
[~2018-04-27 20:39] MED LIST changes: +BENTYL 20 MG TA20 MG PO
[2018-04-27 20:53] VITALS: Ht 157.5 cm; Wt 84.5 kg
[2018-04-27] MEDS ORDERED: CITALOPRAM10 MG/5 ML (20:54)
[2018-04-27] MEDS ORDERED: ABILIFY20 MG (20:54)
[2018-04-27 21:09] LABS: BASOPHILS 0.2 % (0-2); EOSINOPHILS 1.3 % (0-7); HEMATOCRIT 39.1 % (36.0-48.0); HEMOGLOBIN 13.3 g/dL (12-16); IMMATURE GRANULOCYTES 0.2 % (0-5); LYMPHOCYTES 18.7 % (15-50); MCV 85.2 fL (80.0-100.0); MEAN PLATELET VOLUME 11.3 fL (7.4-10.4); MONOCYTES 5.1 % (2-11); NEUTROPHILS 74.5 % (40-80); PLATELET COUNT 238 10x3/uL (130-400); RBC 4.59 10x6/uL (4.00-5.40); RDW 13.6 % (11.5-14.5); WBC 11.3 10x3/uL (4.8-10.8)
[2018-04-27 21:23] LABS: ALKALINE PHOSPHATASE 100 U/L (46-116); ALT (SGPT) 25 U/L (10-68); BILIRUBIN - TOTAL 0.39 mg/dL (0.2-1.3); CALC OSMOLALITY 279 mosm/kg (275-300); CALCIUM 8.6 mg/dL (8.5-10.1); CARBON DIOXIDE 25.2 mmol/L (21.0-32.0); CHLORIDE - SERUM 106 mmol/L (98-107); CREATININE - SERUM 0.7 mg/dL (0.6-1.3); GLUCOSE 94 mg/dL (74-106); POTASSIUM - SERUM 3.4 mmol/L (3.5-5.1); PROTEIN - SERUM 7.7 g/dL (6.4-8.2); SODIUM 141 mmol/L (136-145); UREA NITROGEN 10 mg/dL (7-18); eGFR NON AFRICAN AMERICAN > 90 mL/min (90-120)
[2018-04-27 22:18] LABS: HCG URINE NEGATIVE (NEGATIVE)
[2018-04-27 22:19] LABS: APPEARANCE TURBID (CLEAR)
[2018-04-27 22:25] LABS: BILIRUBIN NEGATIVE (NEGATIVE); GLUCOSE NEGATIVE (NEGATIVE); KETONE NEGATIVE (NEGATIVE); NITRITE NEGATIVE (NEGATIVE); PROTEIN 2+ mg/dL (NEGATIVE); SPECIFIC GRAVITY 1.025 (1.005-1.020); UROBILINOGEN NORMAL (NORMAL)
[2018-04-27 22:27] LABS: RED CELLS - URINE >50 /hpf (0-5)
[2018-04-27 22:28] LABS: BACTERIA MANY /hpf (NONE SEEN); EPITHELIAL CELLS OCC /hpf (0-5)
[2018-04-27 22:30] LABS: COLOR RED (YELLOW)
[2018-04-28] MEDS ORDERED: ULTRACET TABLET1 TAB PO (00:24)
[2018-04-28 01:01] VITALS: BP 133/78
[2018-04-30 14:30] LABS: SPE - A/G RATIO 1.2 (0.7-1.7); SPE - ALBUMIN 3.9 g/dL (2.9-4.4); SPE - ALPHA-1 GLOBULIN 0.3 g/dL (0.0-0.4); SPE - ALPHA-2 GLOBULIN 0.8 g/dL (0.4-1.0); SPE - BETA GLOBULIN 1.1 g/dL (0.7-1.3); SPE - GAMMA GLOBULIN 1.1 g/dL (0.4-1.8); SPE - M-SPIKE Not Observed g/dL (Not Observed); SPE - TOTAL PROTEIN 7.2 g/dL (6.0-8.5)
== END 2018-04-28 00:35 | disposition home or self-care (01) ==
LOC: D.ER 20:39
PROVIDERS: Emergency Medicine
DX: R10.9 Unspecified abdominal pain (principal); N39.0 Urinary tract infection, site not specified; F17.200 Nicotine dependence, unspecified, uncomplicated

== ENCOUNTER 2018-05-05 18:41 | Emergency (ER) | payer MEDICAID ==
[~2018-05-05] VITALS: Ht 157.5 cm; Wt 85.5 kg
[~2018-05-05 18:41] MED LIST changes: +ABILIFY20 MG; +CITALOPRAM10 MG/5 ML; +ULTRACET TABLET1 TAB PO
[2018-05-05 18:53] VITALS: Ht 157.5 cm; Wt 85.5 kg
[2018-05-05 19:20] LABS: BASOPHILS 0.3 % (0-2); EOSINOPHILS 4.1 % (0-7); HEMATOCRIT 40.5 % (36.0-48.0); HEMOGLOBIN 13.7 g/dL (12-16); IMMATURE GRANULOCYTES 0.1 % (0-5); LYMPHOCYTES 31.5 % (15-50); MCH 28.9 pg (26.0-34.0); MCHC 33.8 g/dL (31.0-37.0); MCV 85.4 fL (80.0-100.0); PLATELET COUNT 246 10x3/uL (130-400); RBC 4.74 10x6/uL (4.00-5.40); RDW 13.5 % (11.5-14.5); WBC 7.6 10x3/uL (4.8-10.8)
[2018-05-05 19:23] LABS: APPEARANCE CLEAR (CLEAR); BILIRUBIN NEGATIVE (NEGATIVE); COLOR STRAW (YELLOW); GLUCOSE NEGATIVE (NEGATIVE); KETONE NEGATIVE (NEGATIVE); NITRITE NEGATIVE (NEGATIVE); PROTEIN NEGATIVE (NEGATIVE); UROBILINOGEN NORMAL (NORMAL)
[2018-05-05 19:24] LABS: HCG URINE NEGATIVE (NEGATIVE)
[2018-05-05 19:42] LABS: ALBUMIN 3.8 g/dL (3.4-5.0); ALKALINE PHOSPHATASE 110 U/L (46-116); ALT (SGPT) 29 U/L (10-68); BILIRUBIN - TOTAL 0.22 mg/dL (0.2-1.3); CALC OSMOLALITY 275 mosm/kg (275-300); CALCIUM 8.9 mg/dL (8.5-10.1); CARBON DIOXIDE 31.2 mmol/L (21.0-32.0); CHLORIDE - SERUM 104 mmol/L (98-107); CREATININE - SERUM 0.8 mg/dL (0.6-1.3); GLUCOSE 81 mg/dL (74-106); POTASSIUM - SERUM 3.8 mmol/L (3.5-5.1); PROTEIN - SERUM 7.4 g/dL (6.4-8.2); SODIUM 140 mmol/L (136-145); UREA NITROGEN 6 mg/dL (7-18); eGFR NON AFRICAN AMERICAN > 90 mL/min (90-120)
[2018-05-05] MEDS ORDERED: COMPAZINE10 MG PO (21:31)
[2018-05-05] MEDS ORDERED: LEVSIN/ANASP0.125 MG PO (21:31)
[2018-05-05 22:18] VITALS: BP 112/64
== END 2018-05-05 22:20 | disposition home or self-care (01) ==
LOC: D.ER 18:41
PROVIDERS: Emergency Medicine
DX: R10.9 Unspecified abdominal pain (principal); R11.2 Nausea with vomiting, unspecified; M54.5 Low back pain; F17.200 Nicotine dependence, unspecified, uncomplicated

== ENCOUNTER 2018-05-11 20:44 | Emergency (ER) | payer MEDICAID ==
[2018-05-05 18:53] VITALS: BMI 34.4
[~2018-05-11 20:44] MED LIST changes: +COMPAZINE10 MG PO; +LEVSIN/ANASP0.125 MG PO
[2018-05-12] MEDS ORDERED: TORADOL10 MG PO (01:15)
== END 2018-05-11 21:48 | disposition left against medical advice (07) ==
LOC: D.ER 20:44
DX: R10.9 Unspecified abdominal pain (principal)

== ENCOUNTER 2018-05-12 00:32 | Emergency (ER) | payer MEDICAID ==
[~2018-05-12] VITALS: Ht 157.5 cm; Wt 84.4 kg
[2018-05-12 00:37] VITALS: Ht 157.5 cm; Wt 84.4 kg
[2018-05-12] MEDS ORDERED: TORADOL10 MG PO (01:15)
[2018-05-12 02:43] VITALS: BP 147/88
== END 2018-05-12 02:38 | disposition home or self-care (01) ==
LOC: D.ER 00:32
DX: S60.042A Contusion of left ring finger without damage to nail, initial encounter (principal); S60.052A Contusion of left little finger without damage to nail, initial encounter; W22.8XXA Striking against or struck by other objects, initial encounter; Y93.89 Activity, other specified; Y92.89 Other specified places as the place of occurrence of the external cause; F17.200 Nicotine dependence, unspecified, uncomplicated

== ENCOUNTER 2018-05-21 19:33 | Emergency (ER) | payer MEDICAID ==
[2018-05-12 00:37] VITALS: BMI 34.4
== END 2018-05-21 19:59 | disposition left against medical advice (07) ==
LOC: D.ER 19:33
DX: L03.039 Cellulitis of unspecified toe (principal)

== ENCOUNTER 2018-05-22 20:43 | Emergency (ER) | payer MEDICAID ==
[~2018-05-22] VITALS: Ht 157.5 cm; Wt 89.1 kg
[2018-05-22 21:18] VITALS: BP 124/70; Ht 157.5 cm; Wt 89.1 kg
== END 2018-05-22 23:12 | disposition left against medical advice (07) ==
LOC: D.ER 20:43
DX: M79.675 Pain in left toe(s) (principal)

== ENCOUNTER 2018-05-27 04:41 | Emergency (ER) | payer MEDICAID ==
[~2018-05-27] VITALS: Ht 157.5 cm; Wt 89.1 kg
[2018-05-27 04:45] VITALS: Ht 157.5 cm; Wt 89.1 kg
[2018-05-27] MEDS ORDERED: TORADOL10 MG PO (06:53)
[2018-05-27 07:13] VITALS: BP 108/70
== END 2018-05-27 07:15 | disposition home or self-care (01) ==
LOC: D.ER 04:41
DX: N83.202 Unspecified ovarian cyst, left side (principal); R11.0 Nausea; F17.200 Nicotine dependence, unspecified, uncomplicated

== ENCOUNTER 2018-06-29 21:55 | Emergency (ER) | payer MEDICAID ==
[~2018-06-29] VITALS: Ht 157.5 cm; Wt 85.0 kg
[2018-06-29 22:08] VITALS: BP 133/88; Ht 157.5 cm; Wt 85.0 kg
[2018-06-29 22:38] LABS: BASOPHILS 0.2 % (0-2); EOSINOPHILS 3.9 % (0-7); HEMATOCRIT 39.8 % (36.0-48.0); HEMOGLOBIN 13.4 g/dL (12-16); IMMATURE GRANULOCYTES 0.2 % (0-5); LYMPHOCYTES 23.5 % (15-50); MCH 28.9 pg (26.0-34.0); MCHC 33.7 g/dL (31.0-37.0); MEAN PLATELET VOLUME 11.3 fL (7.4-10.4); MONOCYTES 6.7 % (2-11); NEUTROPHILS 65.5 % (40-80); PLATELET COUNT 226 10x3/uL (130-400); RBC 4.63 10x6/uL (4.00-5.40); RDW 13.8 % (11.5-14.5); WBC 12.2 10x3/uL (4.8-10.8)
[2018-06-29 22:46] LABS: HCG SERUM NEGATIVE (NEGATIVE)
[2018-06-29 22:51] LABS: ALBUMIN 3.6 g/dL (3.4-5.0); ALKALINE PHOSPHATASE 107 U/L (46-116); ALT (SGPT) 25 U/L (10-68); BILIRUBIN - TOTAL 0.13 mg/dL (0.2-1.3); CALC OSMOLALITY 278 mosm/kg (275-300); CALCIUM 8.8 mg/dL (8.5-10.1); CHLORIDE - SERUM 106 mmol/L (98-107); CREATININE - SERUM 0.8 mg/dL (0.6-1.3); GLUCOSE 106 mg/dL (74-106); LIPASE 108 U/L (73-393); POTASSIUM - SERUM 4.1 mmol/L (3.5-5.1); PROTEIN - SERUM 7.4 g/dL (6.4-8.2); SODIUM 141 mmol/L (136-145); UREA NITROGEN 8 mg/dL (7-18); eGFR NON AFRICAN AMERICAN > 90 mL/min (90-120)
[2018-06-29 23:32] LABS: APPEARANCE TURBID (CLEAR); BILIRUBIN NEGATIVE (NEGATIVE); COLOR RED (YELLOW); EPITHELIAL CELLS NSEEN /hpf (0-5); GLUCOSE NEGATIVE (NEGATIVE); KETONE NEGATIVE (NEGATIVE); NITRITE NEGATIVE (NEGATIVE); PROTEIN 1+ mg/dL (NEGATIVE); RED CELLS - URINE >50 /hpf (0-5); UROBILINOGEN NORMAL (NORMAL); WHITE CELLS - URINE RARE /hpf (0-5)
[2018-06-29 23:33] LABS: BACTERIA NONE SEEN /hpf (NONE SEEN)
== END 2018-06-30 02:14 | disposition home or self-care (01) ==
LOC: D.ER 21:55
PROVIDERS: Family Medicine
DX: R10.31 Right lower quadrant pain (principal); F17.200 Nicotine dependence, unspecified, uncomplicated

== ENCOUNTER 2018-07-02 21:01 | Emergency (ER) | payer MEDICAID ==
[~2018-07-02] VITALS: Ht 157.5 cm; Wt 86.6 kg
[2018-07-02 21:17] VITALS: BP 131/78; Ht 157.5 cm; Wt 86.6 kg
[2018-07-02 22:20] LABS: APPEARANCE HAZY (CLEAR); COLOR YELLOW (YELLOW)
[2018-07-02 22:21] LABS: BILIRUBIN NEGATIVE (NEGATIVE); GLUCOSE NEGATIVE (NEGATIVE); KETONE NEGATIVE (NEGATIVE); NITRITE NEGATIVE (NEGATIVE); PROTEIN TRACE mg/dL (NEGATIVE); SPECIFIC GRAVITY 1.025 (1.005-1.020); UROBILINOGEN NORMAL (NORMAL)
[2018-07-02 22:22] LABS: BACTERIA MODERATE /hpf (NONE SEEN); EPITHELIAL CELLS 0-5 /hpf (0-5); WHITE CELLS - URINE 0-5 /hpf (0-5)
== END 2018-07-02 22:47 | disposition left against medical advice (07) ==
LOC: D.ER 21:01
PROVIDERS: Family Medicine
DX: R10.9 Unspecified abdominal pain (principal)

== ENCOUNTER 2018-07-09 22:36 | Emergency (ER) | payer SELFPAY ==
[~2018-07-09] VITALS: Ht 157.5 cm; Wt 86.6 kg
[2018-07-09 22:39] VITALS: Ht 157.5 cm; Wt 86.6 kg
[2018-07-09] MEDS ORDERED: LITHOBID 300 M300 MG PO (22:42)
[2018-07-09] MEDS ORDERED: ZANTAC300 MG PO (22:43)
[2018-07-09] MEDS ORDERED: SINGULAIR10 MG PO (22:43)
[2018-07-09] MEDS ORDERED: TRAZODONE HCL150 MG (22:43)
[2018-07-09] MEDS ORDERED: EC-NAPROSYN500 MG PO (23:39)
[2018-07-10 00:03] VITALS: BP 121/78
== END 2018-07-10 00:06 | disposition home or self-care (01) ==
LOC: D.ER 22:36
DX: R07.89 Other chest pain (principal); F17.200 Nicotine dependence, unspecified, uncomplicated

== ENCOUNTER 2018-07-24 19:05 | Emergency (ER) | payer SELFPAY ==
[~2018-07-24] VITALS: Ht 157.5 cm; Wt 90.9 kg
[~2018-07-24 19:05] MED LIST changes: +EC-NAPROSYN500 MG PO; +LITHOBID 300 M300 MG PO; +SINGULAIR10 MG PO; +TRAZODONE HCL150 MG; +ZANTAC300 MG PO
[2018-07-24 19:22] VITALS: Ht 157.5 cm; Wt 90.9 kg
[2018-07-24] MEDS ORDERED: HYDROCODON-ACE1 EAC7 PO (19:28)
[2018-07-24] MEDS ORDERED: AMOXICILLIN875 MG PO (19:28)
[2018-07-24 21:36] LABS: APPEARANCE CLEAR (CLEAR); BILIRUBIN NEGATIVE (NEGATIVE); COLOR YELLOW (YELLOW); GLUCOSE NEGATIVE (NEGATIVE); KETONE NEGATIVE (NEGATIVE); NITRITE NEGATIVE (NEGATIVE); PROTEIN NEGATIVE (NEGATIVE); UROBILINOGEN NORMAL (NORMAL)
[2018-07-24 21:39] LABS: UDS - AMPHET NEGATIVE QUAL (NEGATIVE); UDS - BARB NEGATIVE QUAL (NEGATIVE); UDS - BENZO NEGATIVE QUAL (NEGATIVE); UDS - COCAINE NEGATIVE QUAL (NEGATIVE); UDS - OPIATE POSITIVE QUAL (NEGATIVE); UDS - PCP NEGATIVE QUAL (NEGATIVE); UDS - THC NEGATIVE QUAL (NEGATIVE)
[2018-07-24 21:46] LABS: BACTERIA FEW /hpf (NONE SEEN); RED CELLS - URINE 0-5 /hpf (0-5); WHITE CELLS - URINE 0-5 /hpf (0-5)
[2018-07-24 22:23] VITALS: BP 113/78
== END 2018-07-24 22:23 | disposition home or self-care (01) ==
LOC: D.ER 19:05
PROVIDERS: Family Medicine
DX: R10.9 Unspecified abdominal pain (principal); F17.200 Nicotine dependence, unspecified, uncomplicated

== ENCOUNTER 2018-08-02 22:03 | Emergency (ER) | payer SELFPAY ==
[~2018-08-02] VITALS: Ht 157.5 cm; Wt 90.9 kg
[~2018-08-02 22:03] MED LIST changes: +AMOXICILLIN875 MG PO; +HYDROCODON-ACE1 EAC7 PO
[2018-08-02 22:10] VITALS: Ht 157.5 cm; Wt 90.9 kg
[2018-08-02 22:48] LABS: BASOPHILS 0.2 % (0-2); EOSINOPHILS 1.6 % (0-7); HEMATOCRIT 38.3 % (36.0-48.0); HEMOGLOBIN 12.7 g/dL (12-16); IMMATURE GRANULOCYTES 0.1 % (0-5); LYMPHOCYTES 27.8 % (15-50); MCH 29.1 pg (26.0-34.0); MCHC 33.2 g/dL (31.0-37.0); MCV 87.8 fL (80.0-100.0); MEAN PLATELET VOLUME 11.6 fL (7.4-10.4); MONOCYTES 6.8 % (2-11); NEUTROPHILS 63.5 % (40-80); PLATELET COUNT 235 10x3/uL (130-400); RBC 4.36 10x6/uL (4.00-5.40); RDW 13.9 % (11.5-14.5); WBC 9.7 10x3/uL (4.8-10.8)
[2018-08-02 22:51] LABS: APPEARANCE HAZY (CLEAR); BILIRUBIN NEGATIVE (NEGATIVE); COLOR YELLOW (YELLOW); GLUCOSE NEGATIVE (NEGATIVE); KETONE NEGATIVE (NEGATIVE); NITRITE NEGATIVE (NEGATIVE); PROTEIN NEGATIVE (NEGATIVE); UROBILINOGEN NORMAL (NORMAL)
[2018-08-02 22:53] LABS: BACTERIA MODERATE /hpf (NONE SEEN); EPITHELIAL CELLS 0-5 /hpf (0-5); RED CELLS - URINE >50 /hpf (0-5); WHITE CELLS - URINE 0-5 /hpf (0-5)
[2018-08-02 22:59] LABS: ALBUMIN 3.5 g/dL (3.4-5.0); ALKALINE PHOSPHATASE 99 U/L (46-116); ALT (SGPT) 24 U/L (10-68); BILIRUBIN - TOTAL 0.17 mg/dL (0.2-1.3); CALC OSMOLALITY 286 mosm/kg (275-300); CALCIUM 8.9 mg/dL (8.5-10.1); CARBON DIOXIDE 29.5 mmol/L (21.0-32.0); CHLORIDE - SERUM 106 mmol/L (98-107); CREATININE - SERUM 0.7 mg/dL (0.6-1.3); GLUCOSE 120 mg/dL (74-106); POTASSIUM - SERUM 3.6 mmol/L (3.5-5.1); PROTEIN - SERUM 7.2 g/dL (6.4-8.2); SODIUM 143 mmol/L (136-145); UREA NITROGEN 16 mg/dL (7-18); eGFR NON AFRICAN AMERICAN > 90 mL/min (90-120)
[2018-08-02 23:03] LABS: HCG SERUM NEGATIVE (NEGATIVE)
[2018-08-02] MEDS ORDERED: ZOFRAN8 MG PO (23:20)
[2018-08-02 23:32] VITALS: BP 130/88
== END 2018-08-02 23:30 | disposition home or self-care (01) ==
LOC: D.ER 22:03
PROVIDERS: Emergency Medicine
DX: R10.31 Right lower quadrant pain (principal); R11.2 Nausea with vomiting, unspecified; R19.7 Diarrhea, unspecified

== ENCOUNTER 2018-08-16 16:58 | Emergency (ER) | payer MEDICAID ==
[~2018-08-16] VITALS: Ht 157.5 cm; Wt 89.1 kg
[~2018-08-16 16:58] MED LIST changes: +ZOFRAN8 MG PO
[2018-08-16 17:04] VITALS: BP 123/73; Ht 157.5 cm; Wt 89.1 kg
[2018-08-16 17:30] LABS: BASOPHILS 0.3 % (0-2); EOSINOPHILS 1.1 % (0-7); HEMATOCRIT 42.2 % (36.0-48.0); HEMOGLOBIN 13.8 g/dL (12-16); IMMATURE GRANULOCYTES 0.1 % (0-5); LYMPHOCYTES 32.5 % (15-50); MCH 29.1 pg (26.0-34.0); MCHC 32.7 g/dL (31.0-37.0); MEAN PLATELET VOLUME 11.6 fL (7.4-10.4); MONOCYTES 9.6 % (2-11); NEUTROPHILS 56.4 % (40-80); PLATELET COUNT 236 10x3/uL (130-400); RBC 4.74 10x6/uL (4.00-5.40); RDW 13.7 % (11.5-14.5); WBC 7.9 10x3/uL (4.8-10.8)
[2018-08-16 17:39] LABS: HCG URINE NEGATIVE (NEGATIVE)
[2018-08-16 17:42] LABS: APPEARANCE CLEAR (CLEAR); BILIRUBIN NEGATIVE (NEGATIVE); COLOR YELLOW (YELLOW); GLUCOSE NEGATIVE (NEGATIVE); KETONE NEGATIVE (NEGATIVE); NITRITE NEGATIVE (NEGATIVE); PROTEIN NEGATIVE (NEGATIVE); SPECIFIC GRAVITY 1.015 (1.005-1.020); UROBILINOGEN NORMAL (NORMAL)
[2018-08-16 17:53] LABS: ALBUMIN 3.8 g/dL (3.4-5.0); ALKALINE PHOSPHATASE 103 U/L (46-116); ALT (SGPT) 24 U/L (10-68); AMYLASE - SERUM 28 U/L (25-115); BILIRUBIN - TOTAL 0.17 mg/dL (0.2-1.3); CALC OSMOLALITY 278 mosm/kg (275-300); CALCIUM 8.7 mg/dL (8.5-10.1); CARBON DIOXIDE 28.3 mmol/L (21.0-32.0); CHLORIDE - SERUM 103 mmol/L (98-107); CREATININE - SERUM 0.7 mg/dL (0.6-1.3); GLUCOSE 93 mg/dL (74-106); LIPASE 75 U/L (73-393); POTASSIUM - SERUM 3.8 mmol/L (3.5-5.1); PROTEIN - SERUM 7.4 g/dL (6.4-8.2); SODIUM 139 mmol/L (136-145); UREA NITROGEN 15 mg/dL (7-18); eGFR NON AFRICAN AMERICAN > 90 mL/min (90-120)
== END 2018-08-16 18:49 | disposition left against medical advice (07) ==
LOC: D.ER 16:58
PROVIDERS: Family Medicine
DX: R10.9 Unspecified abdominal pain (principal); R11.10 Vomiting, unspecified

== ENCOUNTER 2018-09-28 14:43 | Emergency (ER) | payer MEDICAID ==
[~2018-09-28] VITALS: Ht 157.5 cm; Wt 88.6 kg
[2018-09-28 14:57] VITALS: Ht 157.5 cm; Wt 88.6 kg
[2018-09-28] MEDS ORDERED: PRENAVITE1 TAB PO (14:59)
[2018-09-28 15:42] LABS: HCG URINE NEGATIVE (NEGATIVE)
[2018-09-28 15:47] LABS: APPEARANCE CLEAR (CLEAR); COLOR YELLOW (YELLOW); GLUCOSE NEGATIVE (NEGATIVE); KETONE NEGATIVE (NEGATIVE); NITRITE NEGATIVE (NEGATIVE); PROTEIN NEGATIVE (NEGATIVE)
[2018-09-28 15:48] LABS: BILIRUBIN NEGATIVE (NEGATIVE); EPITHELIAL CELLS >50 /hpf (0-5); RED CELLS - URINE RARE /hpf (0-5); UROBILINOGEN NORMAL (NORMAL); WHITE CELLS - URINE NSEEN /hpf (0-5)
[2018-09-28 16:01] LABS: BASOPHILS 0.1 % (0-2); EOSINOPHILS 1.8 % (0-7); HEMATOCRIT 40.1 % (36.0-48.0); HEMOGLOBIN 13.6 g/dL (12-16); IMMATURE GRANULOCYTES 0.1 % (0-5); LYMPHOCYTES 26.4 % (15-50); MCH 29.1 pg (26.0-34.0); MCHC 33.9 g/dL (31.0-37.0); MCV 85.7 fL (80.0-100.0); MEAN PLATELET VOLUME 11.4 fL (7.4-10.4); MONOCYTES 7.2 % (2-11); NEUTROPHILS 64.4 % (40-80); PLATELET COUNT 223 10x3/uL (130-400); RBC 4.68 10x6/uL (4.00-5.40); RDW 13.6 % (11.5-14.5); WBC 7.2 10x3/uL (4.8-10.8)
[2018-09-28 16:27] LABS: ALKALINE PHOSPHATASE 89 U/L (46-116); ALT (SGPT) 29 U/L (10-68); BILIRUBIN - TOTAL 0.31 mg/dL (0.2-1.3); CALC OSMOLALITY 276 mosm/kg (275-300); CALCIUM 9.2 mg/dL (8.5-10.1); CARBON DIOXIDE 26.2 mmol/L (21.0-32.0); CHLORIDE - SERUM 104 mmol/L (98-107); CREATININE - SERUM 0.5 mg/dL (0.6-1.3); GLUCOSE 89 mg/dL (74-106); POTASSIUM - SERUM 3.8 mmol/L (3.5-5.1); PROTEIN - SERUM 7.7 g/dL (6.4-8.2); SODIUM 140 mmol/L (136-145); UREA NITROGEN 10 mg/dL (7-18); eGFR NON AFRICAN AMERICAN > 90 mL/min (90-120)
[2018-09-28 16:34] LABS: AMYLASE - SERUM 30 U/L (25-115); LIPASE 68 U/L (73-393)
[2018-09-28 16:36] LABS: TROPONIN-I < 0.017 ng/mL (0.000-0.060)
[2018-09-28 16:40] LABS: HCG SERUM NEGATIVE (NEGATIVE)
[2018-09-28] MEDS ORDERED: LOMOTIL 2.5-0.1 EAC1 PO (17:57)
[2018-09-28] MEDS ORDERED: ZOFRAN8 MG PO (17:57)
[2018-09-28 18:40] VITALS: BP 128/77
== END 2018-09-28 18:41 | disposition home or self-care (01) ==
LOC: D.ER 14:43
PROVIDERS: Family Medicine
DX: K59.00 Constipation, unspecified (principal); B34.9 Viral infection, unspecified; R19.7 Diarrhea, unspecified; F17.200 Nicotine dependence, unspecified, uncomplicated

== ENCOUNTER 2018-10-05 20:44 | Emergency (ER) | payer MEDICAID ==
[~2018-10-05 20:44] MED LIST changes: +LOMOTIL 2.5-0.1 EAC1 PO; +PRENAVITE1 TAB PO
[2018-10-05 20:48] VITALS: Ht 157.5 cm
[2018-10-05 21:29] LABS: BASOPHILS 0.2 % (0-2); EOSINOPHILS 2.5 % (0-7); HEMATOCRIT 38.8 % (36.0-48.0); HEMOGLOBIN 12.6 g/dL (12-16); IMMATURE GRANULOCYTES 0.1 % (0-5); LYMPHOCYTES 28.3 % (15-50); MCH 28.5 pg (26.0-34.0); MCHC 32.5 g/dL (31.0-37.0); MCV 87.8 fL (80.0-100.0); MONOCYTES 6.6 % (2-11); NEUTROPHILS 62.3 % (40-80); PLATELET COUNT 193 10x3/uL (130-400); RBC 4.42 10x6/uL (4.00-5.40); RDW 13.9 % (11.5-14.5); WBC 9.2 10x3/uL (4.8-10.8)
[2018-10-05 21:33] LABS: APPEARANCE CLEAR (CLEAR); BILIRUBIN NEGATIVE (NEGATIVE); COLOR YELLOW (YELLOW); GLUCOSE NEGATIVE (NEGATIVE); HCG URINE NEGATIVE (NEGATIVE); KETONE NEGATIVE (NEGATIVE); NITRITE NEGATIVE (NEGATIVE); PROTEIN NEGATIVE (NEGATIVE); UROBILINOGEN NORMAL (NORMAL)
[2018-10-05 21:52] LABS: ALBUMIN 3.3 g/dL (3.4-5.0); ALKALINE PHOSPHATASE 94 U/L (46-116); ALT (SGPT) 30 U/L (10-68); AMYLASE - SERUM 23 U/L (25-115); BILIRUBIN - TOTAL 0.21 mg/dL (0.2-1.3); CALC OSMOLALITY 288 mosm/kg (275-300); CALCIUM 8.6 mg/dL (8.5-10.1); CARBON DIOXIDE 28.5 mmol/L (21.0-32.0); CHLORIDE - SERUM 107 mmol/L (98-107); CREATININE - SERUM 0.7 mg/dL (0.6-1.3); GLUCOSE 112 mg/dL (74-106); LIPASE 68 U/L (73-393); POTASSIUM - SERUM 3.6 mmol/L (3.5-5.1); PROTEIN - SERUM 6.9 g/dL (6.4-8.2); SODIUM 144 mmol/L (136-145); UREA NITROGEN 14 mg/dL (7-18); eGFR NON AFRICAN AMERICAN > 90 mL/min (90-120)
[2018-10-05] MEDS ORDERED: ROBAXIN500 MG PO (23:17)
[2018-10-05 23:37] VITALS: BP 154/71
== END 2018-10-05 23:37 | disposition home or self-care (01) ==
LOC: D.ER 20:44
PROVIDERS: Family Medicine
DX: N83.202 Unspecified ovarian cyst, left side (principal); F17.200 Nicotine dependence, unspecified, uncomplicated

== ENCOUNTER 2018-10-27 14:44 | Emergency (ER) | payer MEDICAID ==
[~2018-10-27] VITALS: Ht 157.5 cm; Wt 88.6 kg
[~2018-10-27 14:44] MED LIST changes: +ROBAXIN500 MG PO
[2018-10-27 14:47] VITALS: Ht 157.5 cm; Wt 88.6 kg
[2018-10-27 15:21] LABS: APPEARANCE CLEAR (CLEAR); BILIRUBIN NEGATIVE (NEGATIVE); COLOR YELLOW (YELLOW); GLUCOSE NEGATIVE (NEGATIVE); KETONE NEGATIVE (NEGATIVE); NITRITE NEGATIVE (NEGATIVE); PROTEIN NEGATIVE (NEGATIVE); SPECIFIC GRAVITY 1.025 (1.005-1.020); UROBILINOGEN NORMAL (NORMAL)
[2018-10-27 15:22] LABS: RED CELLS - URINE 0-5 /hpf (0-5); WHITE CELLS - URINE 0-5 /hpf (0-5)
[2018-10-27 15:23] LABS: BACTERIA MODERATE /hpf (NONE SEEN)
[2018-10-27 15:36] LABS: HCG URINE POSITIVE (NEGATIVE)
[2018-10-27 15:59] LABS: BASOPHILS 0.1 % (0-2); EOSINOPHILS 1.7 % (0-7); HEMATOCRIT 40.6 % (36.0-48.0); HEMOGLOBIN 13.6 g/dL (12-16); IMMATURE GRANULOCYTES 0.1 % (0-5); LYMPHOCYTES 22.1 % (15-50); MCHC 33.5 g/dL (31.0-37.0); MCV 86.6 fL (80.0-100.0); MEAN PLATELET VOLUME 11.6 fL (7.4-10.4); MONOCYTES 5.4 % (2-11); NEUTROPHILS 70.6 % (40-80); RBC 4.69 10x6/uL (4.00-5.40); RDW 13.9 % (11.5-14.5); WBC 10.3 10x3/uL (4.8-10.8)
[2018-10-27 16:07] LABS: PLATELET COUNT 258 10x3/uL (130-400)
[2018-10-27 16:16] LABS: ALBUMIN 3.6 g/dL (3.4-5.0); ALKALINE PHOSPHATASE 96 U/L (46-116); ALT (SGPT) 27 U/L (10-68); BILIRUBIN - TOTAL 0.32 mg/dL (0.2-1.3); CALC OSMOLALITY 276 mosm/kg (275-300); CALCIUM 8.6 mg/dL (8.5-10.1); CARBON DIOXIDE 26.1 mmol/L (21.0-32.0); CHLORIDE - SERUM 104 mmol/L (98-107); CREATININE - SERUM 0.7 mg/dL (0.6-1.3); GLUCOSE 114 mg/dL (74-106); POTASSIUM - SERUM 3.5 mmol/L (3.5-5.1); PROTEIN - SERUM 7.5 g/dL (6.4-8.2); SODIUM 139 mmol/L (136-145); UREA NITROGEN 8 mg/dL (7-18); eGFR NON AFRICAN AMERICAN > 90 mL/min (90-120)
[2018-10-27 16:23] LABS: HCG - QUANTITATIVE (MATERNAL) 39 mIU/mL
[2018-10-27] MEDS ORDERED: MACROBID100 MG PO (17:25)
[2018-10-27 17:33] VITALS: BP 119/63
== END 2018-10-27 17:38 | disposition home or self-care (01) ==
LOC: D.ER 14:44
PROVIDERS: Emergency Medicine
DX: Z32.01 Encounter for pregnancy test, result positive (principal); O23.40 Unspecified infection of urinary tract in pregnancy, unspecified trimester; Z3A.00 Weeks of gestation of pregnancy not specified; O20.9 Hemorrhage in early pregnancy, unspecified

== ENCOUNTER 2018-11-01 09:40 | Observation (INO) | payer MEDICAID ==
[~2018-11-01] VITALS: Ht 157.5 cm; Wt 83.2 kg
[2018-11-01 09:47] VITALS: Ht 157.5 cm; Wt 83.2 kg
[2018-11-01 10:09] LABS: BASOPHILS 0.2 % (0-2); EOSINOPHILS 2.5 % (0-7); HEMATOCRIT 47.1 % (36.0-48.0); IMMATURE GRANULOCYTES 0.3 % (0-5); LYMPHOCYTES 26.7 % (15-50); MCH 29.5 pg (26.0-34.0); MCV 86.7 fL (80.0-100.0); MEAN PLATELET VOLUME 12.4 fL (7.4-10.4); MONOCYTES 7.6 % (2-11); NEUTROPHILS 62.7 % (40-80); PLATELET COUNT 266 10x3/uL (130-400); RBC 5.43 10x6/uL (4.00-5.40); RDW 14.7 % (11.5-14.5); WBC 9.1 10x3/uL (4.8-10.8)
[2018-11-01 10:31] LABS: APPEARANCE CLOUDY (CLEAR); BILIRUBIN NEGATIVE (NEGATIVE); COLOR YELLOW (YELLOW); GLUCOSE NEGATIVE (NEGATIVE); KETONE NEGATIVE (NEGATIVE); NITRITE NEGATIVE (NEGATIVE); PROTEIN NEGATIVE (NEGATIVE); SPECIFIC GRAVITY 1.015 (1.005-1.020); UROBILINOGEN NORMAL (NORMAL)
[2018-11-01 10:41] LABS: BACTERIA MANY /hpf (NONE SEEN); RED CELLS - URINE 25-50 /hpf (0-5); WHITE CELLS - URINE 0-5 /hpf (0-5)
[2018-11-01 11:19] LABS: ALBUMIN 3.8 g/dL (3.4-5.0); ALKALINE PHOSPHATASE 97 U/L (46-116); ALT (SGPT) 31 U/L (10-68); BILIRUBIN - TOTAL 0.23 mg/dL (0.2-1.3); CALC OSMOLALITY 278 mosm/kg (275-300); CALCIUM 8.7 mg/dL (8.5-10.1); CARBON DIOXIDE 25.1 mmol/L (21.0-32.0); CHLORIDE - SERUM 105 mmol/L (98-107); CREATININE - SERUM 0.7 mg/dL (0.6-1.3); GLUCOSE 101 mg/dL (74-106); POTASSIUM - SERUM 4.3 mmol/L (3.5-5.1); PROTEIN - SERUM 7.8 g/dL (6.4-8.2); SODIUM 141 mmol/L (136-145); UREA NITROGEN 7 mg/dL (7-18); eGFR NON AFRICAN AMERICAN > 90 mL/min (90-120)
[2018-11-01 11:29] LABS: HCG - QUANTITATIVE (MATERNAL) 9 mIU/mL
[2018-11-01 12:08] VITALS: BP 110/58
--- NOTE | 2018-11-01 12:30 | NUR ---
PT RECEIVED BY WHEELCHAIR FROM ER FOR OBS DUE TO SPONT AB. REPORTS THAT PAIN IS AT 4/10 AT THIS TIME AND ALL IN HER BACK, DENIES CLOTS WITH VOIDS AND STATES BLEEDING NOW IS LESS THAN MENSTRUAL. 20 GAUGE SALINE LOCK TO R HAND WITH SWAB CABS IN PLACE. VSS. PT TO BATHROOM PER SELF AND DENIES NEED FOR CARLTON PAD. PLAN OF CARE GONE OVER WITH PT AND SIG OTHER WITH NO QUESTIONS OR CONCERNS VOICED.
--- NOTE | 2018-11-01 13:18 | NUR ---
LEANDRO IN US CALLS TO VERIFY THAT US WAS NEEDING TO BE REPEATED, EXPLAINS THAT PT HAD ONE IN ER ON 10/27/18, THOSE RESULTS ARE PRINTED FOR DR ABBOTT.
--- NOTE | 2018-11-01 13:30 | NUR ---
DR ABBOTT NOTIFIED THAT PT HAD RECEIVED US ON 10/27/18 THAT RESULTS ARE 'NO INTAUTERINE GESTATIONAL SAC NOTED.' MD ALSO GIVEN REPORT THAT HAD AN HCG QUANT OF 9 TODAY, AND THAT PT WAS ASKING FOR PAIN MED FOR BACK PAIN THAT SHE RATES AT 6/10. MEDS THAT WERE GIVEN IN ER WERE PROVIDED TO DR ABBOTT. NEW ORDERS RECEIVED FOR TORDAL 30MG IV AND REGULAR DIET.
--- NOTE | 2018-11-01 13:35 | NUR ---
DR ABBOTT CALLED BACK AND INFORMED THAT PT LIST ALLERGY TO TORDAL, STATES IT CAUSES ITCHING. NEW MED ORDERS RECEIVED FOR FIORICET 2 TABS. ALSO STATES THAT HE WOULD COME IN AND REVIEW CHART.
--- NOTE | 2018-11-01 13:52 | NUR ---
[facility] DELIVERS LUNCH TRAY, PT INFORMED OF REGULAR DIET ORDER AND SHE MAY EAT. PHARMACY PHONED TO BRING ORDERED FIORCET ORDERED.
--- NOTE | 2018-11-01 14:04 | NUR ---
PHARMACY DELIVERS MEDS REQUESTED. PT ADMIN MED ORDERED. PT STATES SHE WAS UNABLE TO EAT LUNCH BECAUSE IT WAS MAKING HER NAUSEATED. PT DRINKING TEA WITH MEDS. PT EXPRESSES CONCERN OVER BLEEDING. VAGINAL BLEEDING CHECKED AND NOTED TO BE SMALL, PT REASSURED. POC DISCUSSED, UNDERSTANDING VERBALIZED. SRU2, CL IN REACH. SIG OTHER AT BEDSIDE. WILL CONT TO MONITOR.
--- NOTE | 2018-11-01 15:08 | NUR ---
DR ABBOTT CALLS UNIT WITH ORDERS FOR TYLENOL 4 quantity 15 take every 4hrs as needed for pain to be called in to pt pharmacy of choice. explain that she may alternate this with OTC motrin. may d/c home folow up as needed.
--- NOTE | 2018-11-01 15:50 | NUR ---
Script called in to pt pharmacy, [facility] on [address]
[2018-11-01] MEDS ORDERED: TYLENOL #4 W/CO1 TAB PO (15:58)
--- NOTE | 2018-11-01 16:00 | NUR ---
saline lock removed intact from right hand, verbal and written discharge instructions gone over, she states understanding and denies any questions or concerns. rates pain at 0/10 at this time. off unit via wheelchair home with sig other by private vehicle.
== END 2018-11-01 16:00 | disposition home or self-care (01) ==
LOC: D.ER 09:40 → D.EDHOLD 12:12 → OBSVTIME 12:12 → D.ER 12:12 → D.EDHOLD 12:12 → D.LD 12:14
PROVIDERS: Family Medicine; ADMIT Obstetrics & Gynecology
DX: O03.9 Complete or unspecified spontaneous abortion without complication (principal)

== ENCOUNTER 2018-11-06 16:53 | Emergency (ER) | payer MEDICAID ==
[~2018-11-06] VITALS: Ht 157.5 cm; Wt 87.7 kg
[~2018-11-06 16:53] MED LIST changes: +TYLENOL #4 W/CO1 TAB PO
[2018-11-06 17:09] VITALS: Ht 157.5 cm; Wt 87.7 kg
[2018-11-06 19:10] LABS: BASOPHILS 0.2 % (0-2); EOSINOPHILS 2.8 % (0-7); HEMATOCRIT 42.5 % (36.0-48.0); HEMOGLOBIN 14.2 g/dL (12-16); IMMATURE GRANULOCYTES 0.3 % (0-5); LYMPHOCYTES 25.9 % (15-50); MCH 29.3 pg (26.0-34.0); MCHC 33.4 g/dL (31.0-37.0); MCV 87.6 fL (80.0-100.0); MEAN PLATELET VOLUME 11.3 fL (7.4-10.4); MONOCYTES 5.6 % (2-11); NEUTROPHILS 65.2 % (40-80); PLATELET COUNT 239 10x3/uL (130-400); RBC 4.85 10x6/uL (4.00-5.40); RDW 14.1 % (11.5-14.5); WBC 8.9 10x3/uL (4.8-10.8)
[2018-11-06 19:15] LABS: APPEARANCE CLEAR (CLEAR); BILIRUBIN NEGATIVE (NEGATIVE); COLOR YELLOW (YELLOW); GLUCOSE NEGATIVE (NEGATIVE); KETONE NEGATIVE (NEGATIVE); NITRITE NEGATIVE (NEGATIVE); PROTEIN NEGATIVE (NEGATIVE); UROBILINOGEN NORMAL (NORMAL)
[2018-11-06 19:17] LABS: BACTERIA FEW /hpf (NONE SEEN); EPITHELIAL CELLS 0-5 /hpf (0-5); RED CELLS - URINE OCC /hpf (0-5); WHITE CELLS - URINE OCC /hpf (0-5)
[2018-11-06 19:26] LABS: HCG URINE NEGATIVE (NEGATIVE)
[2018-11-06 19:28] LABS: ALBUMIN 3.9 g/dL (3.4-5.0); ALKALINE PHOSPHATASE 92 U/L (46-116); ALT (SGPT) 43 U/L (10-68); BILIRUBIN - TOTAL 0.49 mg/dL (0.2-1.3); CALC OSMOLALITY 274 mosm/kg (275-300); CALCIUM 9.1 mg/dL (8.5-10.1); CARBON DIOXIDE 27.5 mmol/L (21.0-32.0); CHLORIDE - SERUM 101 mmol/L (98-107); CREATININE - SERUM 0.6 mg/dL (0.6-1.3); GLUCOSE 91 mg/dL (74-106); LIPASE 58 U/L (73-393); POTASSIUM - SERUM 4.3 mmol/L (3.5-5.1); SODIUM 138 mmol/L (136-145); UREA NITROGEN 9 mg/dL (7-18); eGFR NON AFRICAN AMERICAN > 90 mL/min (90-120)
[2018-11-06] MEDS ORDERED: BENTYL 20 MG TA20 MG PO (20:48)
[2018-11-06] MEDS ORDERED: ZOFRAN ODT4 MG/UDTAB PO (20:48)
[2018-11-06 21:18] VITALS: BP 134/90
== END 2018-11-06 21:37 | disposition home or self-care (01) ==
LOC: D.ER 16:53
PROVIDERS: Family Medicine
DX: A08.4 Viral intestinal infection, unspecified (principal); R11.0 Nausea; F17.200 Nicotine dependence, unspecified, uncomplicated

== ENCOUNTER 2018-12-03 14:47 | Emergency (ER) | payer MEDICAID ==
[~2018-12-03] VITALS: Ht 157.5 cm; Wt 84.1 kg
[2018-12-03 14:54] VITALS: BP 134/86; Ht 157.5 cm; Wt 84.1 kg
[2018-12-03 15:31] LABS: APPEARANCE CLEAR (CLEAR); BILIRUBIN NEGATIVE (NEGATIVE); COLOR YELLOW (YELLOW); GLUCOSE NEGATIVE (NEGATIVE); KETONE NEGATIVE (NEGATIVE); NITRITE NEGATIVE (NEGATIVE); PROTEIN NEGATIVE (NEGATIVE); SPECIFIC GRAVITY 1.015 (1.005-1.020); UROBILINOGEN NORMAL (NORMAL)
[2018-12-03 15:37] LABS: BASOPHILS 0.2 % (0-2); EOSINOPHILS 1.7 % (0-7); HEMOGLOBIN 14.7 g/dL (12-16); IMMATURE GRANULOCYTES 0.2 % (0-5); LYMPHOCYTES 27.2 % (15-50); MCH 29.2 pg (26.0-34.0); MCHC 34.2 g/dL (31.0-37.0); MCV 85.3 fL (80.0-100.0); MEAN PLATELET VOLUME 12.3 fL (7.4-10.4); MONOCYTES 8.1 % (2-11); NEUTROPHILS 62.6 % (40-80); PLATELET COUNT 222 10x3/uL (130-400); RBC 5.04 10x6/uL (4.00-5.40); WBC 6.5 10x3/uL (4.8-10.8)
[2018-12-03 15:40] LABS: ALBUMIN 3.9 g/dL (3.4-5.0); ALKALINE PHOSPHATASE 90 U/L (46-116); ALT (SGPT) 26 U/L (10-68); BILIRUBIN - TOTAL 0.49 mg/dL (0.2-1.3); CALC OSMOLALITY 277 mosm/kg (275-300); CARBON DIOXIDE 24.7 mmol/L (21.0-32.0); CHLORIDE - SERUM 102 mmol/L (98-107); CREATININE - SERUM 0.6 mg/dL (0.6-1.3); GLUCOSE 118 mg/dL (74-106); PROTEIN - SERUM 8.3 g/dL (6.4-8.2); SODIUM 139 mmol/L (136-145); UREA NITROGEN 10 mg/dL (7-18); eGFR NON AFRICAN AMERICAN > 90 mL/min (90-120)
[2018-12-03 16:00] LABS: HCG SERUM NEGATIVE (NEGATIVE)
[2018-12-03] MEDS ORDERED: TYLENOL W/CODEI1 TAB PO (17:13)
== END 2018-12-03 17:46 | disposition home or self-care (01) ==
LOC: D.ER 14:47
PROVIDERS: Emergency Medicine
DX: R10.31 Right lower quadrant pain (principal)

== ENCOUNTER 2018-12-20 19:23 | Emergency (ER) | payer MEDICAID ==
[~2018-12-20] VITALS: Ht 157.5 cm; Wt 84.8 kg
[~2018-12-20 19:23] MED LIST changes: +TYLENOL W/CODEI1 TAB PO
[2018-12-20 19:31] VITALS: BP 137/92; Ht 157.5 cm; Wt 84.8 kg
[2018-12-20 20:07] LABS: APPEARANCE CLEAR (CLEAR); BILIRUBIN NEGATIVE (NEGATIVE); COLOR YELLOW (YELLOW); GLUCOSE NEGATIVE (NEGATIVE); KETONE NEGATIVE (NEGATIVE); NITRITE NEGATIVE (NEGATIVE); PROTEIN NEGATIVE (NEGATIVE); UROBILINOGEN NORMAL (NORMAL)
[2018-12-20 20:08] LABS: RED CELLS - URINE OCC /hpf (0-5); WHITE CELLS - URINE 0-5 /hpf (0-5)
[2018-12-20 20:09] LABS: BACTERIA MODERATE /hpf (NONE SEEN); MUCUS >1+ /lpf (NONE SEEN)
[2018-12-20 20:09] LABS: BASOPHILS 0.2 % (0-2); EOSINOPHILS 1.4 % (0-7); HEMATOCRIT 42.9 % (36.0-48.0); HEMOGLOBIN 14.8 g/dL (12-16); IMMATURE GRANULOCYTES 0.2 % (0-5); LYMPHOCYTES 24.7 % (15-50); MCHC 34.5 g/dL (31.0-37.0); MCV 86.8 fL (80.0-100.0); MEAN PLATELET VOLUME 11.7 fL (7.4-10.4); MONOCYTES 6.6 % (2-11); NEUTROPHILS 66.9 % (40-80); PLATELET COUNT 207 10x3/uL (130-400); RBC 4.94 10x6/uL (4.00-5.40); RDW 13.7 % (11.5-14.5); WBC 9.4 10x3/uL (4.8-10.8)
[2018-12-20 20:10] LABS: HCG URINE NEGATIVE (NEGATIVE)
[2018-12-20 20:26] LABS: ALKALINE PHOSPHATASE 88 U/L (46-116); ALT (SGPT) 69 U/L (10-68); BILIRUBIN - TOTAL 0.34 mg/dL (0.2-1.3); CALC OSMOLALITY 272 mosm/kg (275-300); CALCIUM 8.7 mg/dL (8.5-10.1); CARBON DIOXIDE 24.4 mmol/L (21.0-32.0); CHLORIDE - SERUM 102 mmol/L (98-107); CREATININE - SERUM 0.7 mg/dL (0.6-1.3); GLUCOSE 102 mg/dL (74-106); POTASSIUM - SERUM 3.7 mmol/L (3.5-5.1); PROTEIN - SERUM 8.1 g/dL (6.4-8.2); SODIUM 137 mmol/L (136-145); UREA NITROGEN 10 mg/dL (7-18); eGFR NON AFRICAN AMERICAN > 90 mL/min (90-120)
[2018-12-20 20:29] LABS: AMYLASE - SERUM 27 U/L (25-115); LIPASE 65 U/L (73-393)
[2018-12-20 20:32] LABS: TROPONIN-I < 0.017 ng/mL (0.000-0.060)
[2018-12-20 21:32] LABS: UDS - AMPHET NEGATIVE QUAL (NEGATIVE); UDS - BARB NEGATIVE QUAL (NEGATIVE); UDS - BENZO NEGATIVE QUAL (NEGATIVE); UDS - COCAINE NEGATIVE QUAL (NEGATIVE); UDS - OPIATE NEGATIVE QUAL (NEGATIVE); UDS - PCP NEGATIVE QUAL (NEGATIVE); UDS - THC NEGATIVE QUAL (NEGATIVE)
== END 2018-12-20 20:42 | disposition home or self-care (01) ==
LOC: D.ER 19:23
PROVIDERS: Family Medicine
DX: R10.9 Unspecified abdominal pain (principal)

== ENCOUNTER 2019-01-08 01:02 | Emergency (ER) | payer MEDICAID ==
[~2019-01-08] VITALS: Ht 157.5 cm; Wt 85.0 kg
[2019-01-08 01:12] VITALS: Ht 157.5 cm; Wt 85.0 kg
[2019-01-08 01:43] LABS: BASOPHILS 0.1 % (0-2); EOSINOPHILS 1.6 % (0-7); HEMATOCRIT 45.1 % (36.0-48.0); HEMOGLOBIN 15.6 g/dL (12-16); IMMATURE GRANULOCYTES 0.2 % (0-5); LYMPHOCYTES 24.4 % (15-50); MCH 30.4 pg (26.0-34.0); MCHC 34.6 g/dL (31.0-37.0); MCV 87.9 fL (80.0-100.0); MEAN PLATELET VOLUME 11.8 fL (7.4-10.4); MONOCYTES 9.1 % (2-11); NEUTROPHILS 64.6 % (40-80); RBC 5.13 10x6/uL (4.00-5.40); RDW 14.1 % (11.5-14.5)
[2019-01-08 01:45] LABS: PLATELET COUNT 256 10x3/uL (130-400)
[2019-01-08 01:49] LABS: APPEARANCE HAZY (CLEAR); BILIRUBIN NEGATIVE (NEGATIVE); COLOR YELLOW (YELLOW); GLUCOSE NEGATIVE (NEGATIVE); KETONE NEGATIVE (NEGATIVE); NITRITE NEGATIVE (NEGATIVE); PROTEIN TRACE mg/dL (NEGATIVE); UROBILINOGEN NORMAL (NORMAL)
[2019-01-08 01:50] LABS: HCG URINE NEGATIVE (NEGATIVE)
[2019-01-08 01:58] LABS: BACTERIA MODERATE /hpf (NONE SEEN); EPITHELIAL CELLS 0-5 /hpf (0-5); MUCUS >1+ /lpf (NONE SEEN); RED CELLS - URINE OCC /hpf (0-5); WHITE CELLS - URINE 0-5 /hpf (0-5)
[2019-01-08 01:59] LABS: SPERMATOZOA RARE /hpf (NONE SEEN)
[2019-01-08 02:22] LABS: ALBUMIN 4.2 g/dL (3.4-5.0); ALKALINE PHOSPHATASE 96 U/L (46-116); ALT (SGPT) 43 U/L (10-68); BILIRUBIN - TOTAL 0.34 mg/dL (0.2-1.3); CALC OSMOLALITY 267 mosm/kg (275-300); CARBON DIOXIDE 28.5 mmol/L (21.0-32.0); CHLORIDE - SERUM 102 mmol/L (98-107); CREATININE - SERUM 0.8 mg/dL (0.6-1.3); GLUCOSE 124 mg/dL (74-106); POTASSIUM - SERUM 3.7 mmol/L (3.5-5.1); PROTEIN - SERUM 8.4 g/dL (6.4-8.2); SODIUM 133 mmol/L (136-145); UREA NITROGEN 15 mg/dL (7-18); eGFR NON AFRICAN AMERICAN > 90 mL/min (90-120)
[2019-01-08 02:23] LABS: AMYLASE - SERUM 25 U/L (25-115); LIPASE 83 U/L (73-393)
[2019-01-08] MEDS ORDERED: FLAGYL500 MG PO (05:30)
[2019-01-08 05:44] VITALS: BP 135/74
== END 2019-01-08 05:45 | disposition home or self-care (01) ==
LOC: D.ER 01:02
PROVIDERS: Family Medicine
DX: R10.32 Left lower quadrant pain (principal); N76.0 Acute vaginitis; B96.89 Other specified bacterial agents as the cause of diseases classified elsewhere; E28.2 Polycystic ovarian syndrome

== ENCOUNTER 2019-02-02 20:20 | Emergency (ER) | payer MEDICAID ==
[2019-01-08 01:12] VITALS: BMI 34.3
[~2019-02-02 20:20] MED LIST changes: +FLAGYL500 MG PO
== END 2019-02-02 21:01 | disposition left against medical advice (07) ==
LOC: D.ER 20:20
DX: M54.9 Dorsalgia, unspecified (principal)

== ENCOUNTER 2019-02-04 23:53 | Emergency (ER) | payer MEDICAID ==
[~2019-02-04] VITALS: Ht 157.5 cm; Wt 81.8 kg
[2019-02-05 00:08] VITALS: Ht 157.5 cm; Wt 81.8 kg
[2019-02-05] MEDS ORDERED: BACLOFEN10 MG PO (00:11)
[2019-02-05 01:27] VITALS: BP 124/65
== END 2019-02-05 02:17 | disposition home or self-care (01) ==
LOC: D.ER 23:53
DX: M25.562 Pain in left knee (principal)

== ENCOUNTER 2019-02-16 21:21 | Emergency (ER) | payer MEDICAID ==
[2019-02-05 00:08] VITALS: BMI 33.0
[~2019-02-16 21:21] MED LIST changes: +BACLOFEN10 MG PO
[2019-02-17] MEDS ORDERED: MUSCLE RELAXER (17:54)
[2019-02-17] MEDS ORDERED: PREDNISONE2.5 MG PO (17:54)
[2019-02-17] MEDS ORDERED: FLAGYL500 MG PO (21:43)
[2019-02-17] MEDS ORDERED: ZOFRAN4 MG PO (21:43)
== END 2019-02-16 22:32 | disposition left against medical advice (07) ==
LOC: D.ER 21:21
DX: M54.9 Dorsalgia, unspecified (principal); M79.671 Pain in right foot

== ENCOUNTER 2019-02-17 17:51 | Emergency (ER) | payer MEDICAID ==
[~2019-02-17] VITALS: Ht 157.5 cm; Wt 84.1 kg
[2019-02-17 17:52] VITALS: Ht 157.5 cm; Wt 84.1 kg
[2019-02-17] MEDS ORDERED: MUSCLE RELAXER (17:54)
[2019-02-17] MEDS ORDERED: PREDNISONE2.5 MG PO (17:54)
[2019-02-17 19:01] LABS: BASOPHILS 0.1 % (0-2); EOSINOPHILS 0 % (0-7); HEMATOCRIT 40.9 % (36.0-48.0); IMMATURE GRANULOCYTES 0.3 % (0-5); LYMPHOCYTES 10.4 % (15-50); MCH 30.3 pg (26.0-34.0); MCHC 34.2 g/dL (31.0-37.0); MCV 88.5 fL (80.0-100.0); MEAN PLATELET VOLUME 11.6 fL (7.4-10.4); MONOCYTES 8.9 % (2-11); NEUTROPHILS 80.3 % (40-80); PLATELET COUNT 244 10x3/uL (130-400); RBC 4.62 10x6/uL (4.00-5.40); RDW 13.4 % (11.5-14.5); WBC 17.7 10x3/uL (4.8-10.8)
[2019-02-17 19:17] LABS: ALBUMIN 3.5 g/dL (3.4-5.0); ALKALINE PHOSPHATASE 83 U/L (46-116); ALT (SGPT) 31 U/L (10-68); BILIRUBIN - TOTAL 0.36 mg/dL (0.2-1.3); CALC OSMOLALITY 277 mosm/kg (275-300); CALCIUM 8.4 mg/dL (8.5-10.1); CARBON DIOXIDE 21.4 mmol/L (21.0-32.0); CHLORIDE - SERUM 106 mmol/L (98-107); CREATININE - SERUM 0.7 mg/dL (0.6-1.3); GLUCOSE 99 mg/dL (74-106); POTASSIUM - SERUM 3.5 mmol/L (3.5-5.1); PROTEIN - SERUM 7.2 g/dL (6.4-8.2); SODIUM 140 mmol/L (136-145); UREA NITROGEN 10 mg/dL (7-18); eGFR NON AFRICAN AMERICAN > 90 mL/min (90-120)
[2019-02-17 19:21] LABS: AMYLASE - SERUM 25 U/L (25-115); LIPASE 62 U/L (73-393)
[2019-02-17 19:23] LABS: TROPONIN-I < 0.017 ng/mL (0.000-0.060)
[2019-02-17 19:34] LABS: APPEARANCE CLEAR (CLEAR); BILIRUBIN NEGATIVE (NEGATIVE); COLOR YELLOW (YELLOW); GLUCOSE NEGATIVE (NEGATIVE); HCG URINE NEGATIVE (NEGATIVE); KETONE NEGATIVE (NEGATIVE); NITRITE NEGATIVE (NEGATIVE); PROTEIN NEGATIVE (NEGATIVE); SPECIFIC GRAVITY 1.025 (1.005-1.020); UROBILINOGEN NORMAL (NORMAL)
[2019-02-17] MEDS ORDERED: FLAGYL500 MG PO (21:43)
[2019-02-17] MEDS ORDERED: ZOFRAN4 MG PO (21:43)
[2019-02-17 22:05] VITALS: BP 121/77
== END 2019-02-17 22:00 | disposition home or self-care (01) ==
LOC: D.ER 17:51
PROVIDERS: Emergency Medicine
DX: R10.31 Right lower quadrant pain (principal); K52.9 Noninfective gastroenteritis and colitis, unspecified; N83.202 Unspecified ovarian cyst, left side

== ENCOUNTER 2019-02-22 13:42 | Emergency (ER) | payer MEDICAID ==
[~2019-02-22] VITALS: Ht 157.5 cm; Wt 84.1 kg
[~2019-02-22 13:42] MED LIST changes: +MUSCLE RELAXER; +PREDNISONE2.5 MG PO; +ZOFRAN4 MG PO
[2019-02-22 13:47] VITALS: Ht 157.5 cm; Wt 84.1 kg
[2019-02-22 14:07] LABS: BASOPHILS 0.1 % (0-2); EOSINOPHILS 1.2 % (0-7); HEMATOCRIT 45.7 % (36.0-48.0); HEMOGLOBIN 15.9 g/dL (12-16); IMMATURE GRANULOCYTES 0.1 % (0-5); LYMPHOCYTES 12.2 % (15-50); MCH 30.6 pg (26.0-34.0); MCHC 34.8 g/dL (31.0-37.0); MCV 88.1 fL (80.0-100.0); MEAN PLATELET VOLUME 11.6 fL (7.4-10.4); MONOCYTES 7.7 % (2-11); NEUTROPHILS 78.7 % (40-80); PLATELET COUNT 200 10x3/uL (130-400); RBC 5.19 10x6/uL (4.00-5.40); RDW 13.4 % (11.5-14.5); WBC 8.9 10x3/uL (4.8-10.8)
[2019-02-22 14:17] LABS: HCG SERUM NEGATIVE (NEGATIVE)
[2019-02-22 14:23] LABS: ALBUMIN 3.8 g/dL (3.4-5.0); ALKALINE PHOSPHATASE 87 U/L (46-116); ALT (SGPT) 42 U/L (10-68); AMYLASE - SERUM 28 U/L (25-115); BILIRUBIN - TOTAL 0.73 mg/dL (0.2-1.3); CALC OSMOLALITY 272 mosm/kg (275-300); CHLORIDE - SERUM 102 mmol/L (98-107); CREATININE - SERUM 0.6 mg/dL (0.6-1.3); GLUCOSE 85 mg/dL (74-106); LIPASE 70 U/L (73-393); POTASSIUM - SERUM 4.1 mmol/L (3.5-5.1); PROTEIN - SERUM 7.9 g/dL (6.4-8.2); SODIUM 137 mmol/L (136-145); UREA NITROGEN 12 mg/dL (7-18); eGFR NON AFRICAN AMERICAN > 90 mL/min (90-120)
[2019-02-22 14:34] LABS: APPEARANCE CLEAR (CLEAR); BILIRUBIN NEGATIVE (NEGATIVE); COLOR YELLOW (YELLOW); GLUCOSE NEGATIVE (NEGATIVE); KETONE NEGATIVE (NEGATIVE); NITRITE NEGATIVE (NEGATIVE); PROTEIN NEGATIVE (NEGATIVE); UROBILINOGEN NORMAL (NORMAL)
[2019-02-22 14:35] LABS: MONO NEGATIVE (NEGATIVE)
[2019-02-22] MEDS ORDERED: PEPCID40 MG PO (15:54)
[2019-02-22 16:10] VITALS: BP 126/72
[2019-02-25 11:12] LABS: EBV - EARLY ANTIGEN AB IGG <9.0 U/mL (0.0-8.9); EBV - NUCLEAR ANTIGEN AB IGG >600.0 U/mL (0.0-17.9); EBV VIRAL CAPSID AB IGG 69.5 U/mL (0.0-17.9); EBV VIRAL CAPSID AB IGM <36.0 U/mL (0.0-35.9)
== END 2019-02-22 16:12 | disposition home or self-care (01) ==
LOC: D.ER 13:42
PROVIDERS: Emergency Medicine
DX: K29.70 Gastritis, unspecified, without bleeding (principal)

== ENCOUNTER → 2019-02-24 15:11 | Outpatient (CLI) | payer MEDICAID ==
[2019-02-22 13:47] VITALS: BMI 33.9
[~2019-02-24 15:11] MED LIST changes: +ELAVIL25 MG PO; +IBUPROFEN800 MG PO; +PEPCID40 MG PO; +REXULTI1 MG PO; +VISTARIL25 MG PO
== END | disposition home or self-care (01) ==
LOC: D.MRI 15:11
PROVIDERS: ATTEND Orthopaedic Surgery
DX: S83.272A Complex tear of lateral meniscus, current injury, left knee, initial encounter (principal)

== ENCOUNTER 2019-03-02 15:01 | Emergency (ER) | payer MEDICAID ==
[~2019-03-02] VITALS: Ht 157.5 cm; Wt 81.8 kg
[~2019-03-02 15:01] MED LIST changes: -ELAVIL25 MG PO; -IBUPROFEN800 MG PO; -REXULTI1 MG PO; -VISTARIL25 MG PO
[2019-03-02 15:17] VITALS: Ht 157.5 cm; Wt 81.8 kg
[2019-03-02] MEDS ORDERED: IBUPROFEN800 MG PO (16:30)
[2019-03-02 16:41] VITALS: BP 119/82
[2019-03-02] MEDS ORDERED: VISTARIL25 MG PO (23:52)
== END 2019-03-02 16:42 | disposition home or self-care (01) ==
LOC: D.ER 15:01
DX: M25.561 Pain in right knee (principal)

== ENCOUNTER 2019-03-02 22:01 | Emergency (ER) | payer MEDICAID ==
[~2019-03-02] VITALS: Ht 157.5 cm; Wt 81.6 kg
[~2019-03-02 22:01] MED LIST changes: +IBUPROFEN800 MG PO
[2019-03-02 22:04] VITALS: Ht 157.5 cm; Wt 81.6 kg
[2019-03-02] MEDS ORDERED: VISTARIL25 MG PO (23:52)
[2019-03-03 00:37] VITALS: BP 135/91
[2019-03-10 09:31] VITALS: Ht 157.5 cm; Wt 81.6 kg
== END 2019-03-03 00:37 | disposition home or self-care (01) ==
LOC: D.ER 22:01
DX: F41.0 Panic disorder [episodic paroxysmal anxiety] (principal)

== ENCOUNTER 2019-03-05 19:19 | Emergency (ER) | payer MEDICAID ==
[~2019-03-05] VITALS: Ht 157.5 cm; Wt 83.1 kg
[~2019-03-05 19:19] MED LIST changes: +VISTARIL25 MG PO
[2019-03-05 19:27] VITALS: Ht 157.5 cm; Wt 83.1 kg
[2019-03-05] MEDS ORDERED: REXULTI1 MG PO (19:30)
[2019-03-05] MEDS ORDERED: ELAVIL25 MG PO (19:30)
[2019-03-05 19:48] LABS: BASOPHILS 0.4 % (0-2); EOSINOPHILS 3.8 % (0-7); HEMATOCRIT 42.4 % (36.0-48.0); HEMOGLOBIN 14.5 g/dL (12-16); IMMATURE GRANULOCYTES 0.2 % (0-5); LYMPHOCYTES 28.7 % (15-50); MCH 30.1 pg (26.0-34.0); MCHC 34.2 g/dL (31.0-37.0); MCV 88.1 fL (80.0-100.0); MONOCYTES 6.4 % (2-11); NEUTROPHILS 60.5 % (40-80); RBC 4.81 10x6/uL (4.00-5.40); RDW 13.2 % (11.5-14.5); WBC 9.5 10x3/uL (4.8-10.8)
[2019-03-05 19:56] LABS: PLATELET COUNT 277 10x3/uL (130-400)
[2019-03-05 20:05] LABS: ALBUMIN 3.7 g/dL (3.4-5.0); ALKALINE PHOSPHATASE 106 U/L (46-116); ALT (SGPT) 30 U/L (10-68); AMYLASE - SERUM 32 U/L (25-115); BILIRUBIN - TOTAL 0.23 mg/dL (0.2-1.3); CALC OSMOLALITY 275 mosm/kg (275-300); CALCIUM 8.7 mg/dL (8.5-10.1); CARBON DIOXIDE 26.5 mmol/L (21.0-32.0); CHLORIDE - SERUM 103 mmol/L (98-107); CREATININE - SERUM 0.6 mg/dL (0.6-1.3); GLUCOSE 89 mg/dL (74-106); LIPASE 98 U/L (73-393); POTASSIUM - SERUM 3.9 mmol/L (3.5-5.1); PROTEIN - SERUM 7.7 g/dL (6.4-8.2); SODIUM 139 mmol/L (136-145); UREA NITROGEN 9 mg/dL (7-18); eGFR NON AFRICAN AMERICAN > 90 mL/min (90-120)
[2019-03-05 20:13] LABS: APPEARANCE CLEAR (CLEAR); BILIRUBIN NEGATIVE (NEGATIVE); COLOR YELLOW (YELLOW); GLUCOSE NEGATIVE (NEGATIVE); HCG URINE NEGATIVE (NEGATIVE); KETONE NEGATIVE (NEGATIVE); NITRITE NEGATIVE (NEGATIVE); PROTEIN NEGATIVE (NEGATIVE); SPECIFIC GRAVITY 1.015 (1.005-1.020); UROBILINOGEN NORMAL (NORMAL)
[2019-03-05] MEDS ORDERED: ZOFRAN ODT4 MG/UDTAB PO (20:36)
[2019-03-05 20:52] VITALS: BP 108/66
--- NOTE | 2019-03-05 21:44 | NUR ---
DR. FORD NOTIFIED AND REVIEWED PT'S BEHAVIOR AND ASSESSMENT RESULTS, PT IS LOW RISK PER DR FORD, GAVE PT RESOURCES FOR DISCHARGE, RESOURCES REWIEWED WITH PT AND SHE VERBALIZED UNDERSTANDING.
[2019-03-10 09:31] VITALS: Ht 157.5 cm; Wt 83.1 kg
== END 2019-03-05 20:52 | disposition home or self-care (01) ==
LOC: D.ER 19:19
PROVIDERS: Emergency Medicine
DX: A08.4 Viral intestinal infection, unspecified (principal); R11.2 Nausea with vomiting, unspecified

== ENCOUNTER 2019-03-10 07:35 | Day surgery (SDC) | payer MEDICAID ==
[~2019-03-10] VITALS: Ht 162.6 cm; Wt 84.4 kg
[~2019-03-10 07:35] MED LIST changes: +ELAVIL25 MG PO; +REXULTI1 MG PO
[2019-03-10 09:31] VITALS: BP 119/73; Ht 162.6 cm; Wt 84.4 kg
[2019-03-10] MEDS ORDERED: HYDROCODON-ACE1 EA10 PO (10:35)
--- NOTE | 2019-03-10 10:56 | NUR ---
CARE ASSUMED FROM ALINA JAVED RN
--- NOTE | 2019-03-10 12:12 | NUR ---
PT APPEARS DROWSY BUT STATED SHE IS IN SEVERE PAIN. GIVEN RX AND GETTING THE CRUTCHES
--- NOTE | 2019-03-10 12:35 | NUR ---
DR CRAMER CALLED IN OR ABOUT PTS ITCHING AND LEANDRO AT OFFICE AND PT STARTED ITCHING, ARMS NO SOB. WAITING FOR RETURN CALL
--- NOTE | 2019-03-10 13:14 | NUR ---
IV REMOVED AND PT HERE TO TEACH CRUTCH TRAINING, MEDICATED WITH BENADRYL PO
--- NOTE | 2019-03-10 15:41 | OP ---
PATIENT NAME: DAQUAN ALFORD MEDICAL RECORD: [id number] :95 LOCATION:[facility] ADMISSION DATE: SURGEON: VANNESSA CRAMER MD DATE OF OPERATION: 03/10/2019 PREOPERATIVE DIAGNOSIS: Patellofemoral syndrome of the left knee. POSTOPERATIVE DIAGNOSIS: Patellofemoral syndrome of the left knee. PROCEDURE: Arthroscopic lateral release of the left knee. SURGEON: Vannessa Cramer MD ANESTHESIA: General. INTRAOPERATIVE COMPLICATIONS: None. SUMMARY OF PATHOLOGIC FINDINGS: Extreme tightness of the lateral patellar facet retinaculum consistent with preoperative diagnosis. OPERATIVE SUMMARY IN DETAIL: After obtaining the appropriate preoperative orthopedic surgery consent as well as anesthetic consultation, evaluation and clearance, the patient was brought to the operating and placed on the operating table in a supine position. After adequate general laryngeal mask airway was administered, tourniquet was placed on the proximal aspect of the left lower extremity. Left lower extremity was then prepped and draped in routine sterile fashion. The leg was elevated and exsanguinated, tourniquet was inflated to 350 mmHg. Routine inferolateral portal was established followed by superomedial portal and inferomedial portal. Diagnostic arthroscopy revealed a relatively pristine knee with the exception of extremely tight lateral retinaculum. The hook tip ablator from [employer] was utilized to release the lateral retinaculum from just below the vastus medialis to the inferolateral portal. Having completed this, the knee was insufflated with 30 cc of 0.25% Marcaine with epinephrine and 40 mg of Depo-Medrol. Arthroscopy portals were closed in routine interrupted fashion using 4-0 Prolene. Sterile dressings were applied. The patient was awakened and taken to recovery room in stable condition. All final needle and sponge counts were correct. TRANSINT:[id number] Voice Confirmation ID: [id number] DOCUMENT ID: [id number] VANNESSA CRAMER MD at 1541 CC: [id number] DICTATION DATE: 03/10/19 1042 MINE ANALYST: 03/10/19 1137 DEP [facility] [place] 03/10[place]19 [place] [address]
== END 2019-03-10 13:17 | disposition home or self-care (01) ==
LOC: D.OPS 07:35 → D.PAN 18:45 → D.OPS 18:45
PROVIDERS: ATTEND Orthopaedic Surgery
DX: M22.2X2 Patellofemoral disorders, left knee (principal); Z01.812 Encounter for preprocedural laboratory examination

== ENCOUNTER 2019-03-14 05:40 | Emergency (ER) | payer MEDICAID ==
[~2019-03-14 05:40] MED LIST changes: +HYDROCODON-ACE1 EA10 PO
[2019-03-14 05:44] VITALS: BP 136/65; BMI 31.8
[2019-03-14 06:01] LABS: HCG URINE NEGATIVE (NEGATIVE)
== END 2019-03-14 06:15 | disposition home or self-care (01) ==
LOC: D.ER 05:40
PROVIDERS: Family Medicine
DX: Z71.1 Person with feared health complaint in whom no diagnosis is made (principal)

== ENCOUNTER 2019-03-19 23:02 | Emergency (ER) | payer MEDICAID ==
[~2019-03-19] VITALS: Ht 162.6 cm; Wt 87.7 kg
[2019-03-19 23:08] VITALS: Ht 162.6 cm; Wt 87.7 kg
[2019-03-19] MEDS ORDERED: PERCOCET 10-321 EAC1 PO (23:09)
[2019-03-20] MEDS ORDERED: VOLTAREN75 MG PO (00:06)
[2019-03-20 00:13] VITALS: BP 132/79
== END 2019-03-20 00:13 | disposition home or self-care (01) ==
LOC: D.ER 23:02
DX: S62.307A Unspecified fracture of fifth metacarpal bone, left hand, initial encounter for closed fracture (principal); X58.XXXA Exposure to other specified factors, initial encounter; Y93.89 Activity, other specified; Y92.89 Other specified places as the place of occurrence of the external cause

== ENCOUNTER → 2019-03-25 09:23 | Outpatient (CLI) | payer MEDICAID ==
[2019-03-19 23:08] VITALS: BMI 33.2
[~2019-03-25 09:23] MED LIST changes: +KEFLEX500 MG PO; +KLONOPIN0.5 MG PO; +PERCOCET 10-321 EAC1 PO; +VOLTAREN75 MG PO
== END | disposition home or self-care (01) ==
LOC: D.MRI 09:23
PROVIDERS: ATTEND Clinical Nurse Specialist Family Health
DX: M25.561 Pain in right knee (principal)

== ENCOUNTER 2019-04-03 16:22 | Emergency (ER) | payer MEDICAID ==
[~2019-04-03] VITALS: Ht 162.6 cm; Wt 81.8 kg
[~2019-04-03 16:22] MED LIST changes: -KEFLEX500 MG PO; -KLONOPIN0.5 MG PO
[2019-04-03 16:24] VITALS: Ht 162.6 cm; Wt 81.8 kg
[2019-04-03] MEDS ORDERED: KLONOPIN0.5 MG PO (17:49)
[2019-04-03 18:06] VITALS: BP 123/71
== END 2019-04-03 18:07 | disposition home or self-care (01) ==
LOC: D.ER 16:22
DX: F41.0 Panic disorder [episodic paroxysmal anxiety] (principal)

== ENCOUNTER 2019-04-06 22:34 | Emergency (ER) | payer MEDICAID ==
[~2019-04-06] VITALS: Ht 162.6 cm; Wt 83.9 kg
[~2019-04-06 22:34] MED LIST changes: +KLONOPIN0.5 MG PO
[2019-04-06 22:37] VITALS: Ht 162.6 cm; Wt 83.9 kg
[2019-04-06] MEDS ORDERED: KEFLEX500 MG PO (22:57)
[2019-04-06 23:05] VITALS: BP 140/79
== END 2019-04-06 23:06 | disposition home or self-care (01) ==
LOC: D.ER 22:34
DX: L03.113 Cellulitis of right upper limb (principal)

== ENCOUNTER 2019-04-09 20:00 | Emergency (ER) | payer MEDICAID ==
[~2019-04-09] VITALS: Ht 162.6 cm; Wt 84.1 kg
[~2019-04-09 20:00] MED LIST changes: +KEFLEX500 MG PO
[2019-04-09 20:04] VITALS: Ht 162.6 cm; Wt 84.1 kg
[2019-04-09 21:03] LABS: BASOPHILS 0.2 % (0-2); EOSINOPHILS 1.1 % (0-7); HEMATOCRIT 40.3 % (36.0-48.0); HEMOGLOBIN 13.9 g/dL (12-16); IMMATURE GRANULOCYTES 0.1 % (0-5); LYMPHOCYTES 23.4 % (15-50); MCH 30.2 pg (26.0-34.0); MCHC 34.5 g/dL (31.0-37.0); MCV 87.6 fL (80.0-100.0); MEAN PLATELET VOLUME 11.5 fL (7.4-10.4); MONOCYTES 5.1 % (2-11); NEUTROPHILS 70.1 % (40-80); PLATELET COUNT 231 10x3/uL (130-400); RDW 13.3 % (11.5-14.5); WBC 9.1 10x3/uL (4.8-10.8)
[2019-04-09 21:06] LABS: APPEARANCE CLEAR (CLEAR); COLOR YELLOW (YELLOW); GLUCOSE NEGATIVE (NEGATIVE); KETONE NEGATIVE (NEGATIVE); NITRITE NEGATIVE (NEGATIVE); PROTEIN NEGATIVE (NEGATIVE)
[2019-04-09 21:07] LABS: BACTERIA MODERATE /hpf (NONE SEEN); BILIRUBIN NEGATIVE (NEGATIVE); EPITHELIAL CELLS 0-5 /hpf (0-5); RED CELLS - URINE 0-5 /hpf (0-5); UROBILINOGEN NORMAL (NORMAL)
[2019-04-09 21:10] LABS: HCG URINE NEGATIVE (NEGATIVE)
[2019-04-09 21:19] LABS: ALBUMIN 4.1 g/dL (3.4-5.0); ALKALINE PHOSPHATASE 96 U/L (46-116); ALT (SGPT) 33 U/L (10-68); BILIRUBIN - TOTAL 0.39 mg/dL (0.2-1.3); CALC OSMOLALITY 282 mosm/kg (275-300); CHLORIDE - SERUM 104 mmol/L (98-107); CREATININE - SERUM 0.8 mg/dL (0.6-1.3); GLUCOSE 115 mg/dL (74-106); POTASSIUM - SERUM 3.5 mmol/L (3.5-5.1); PROTEIN - SERUM 7.7 g/dL (6.4-8.2); SODIUM 141 mmol/L (136-145); UREA NITROGEN 14 mg/dL (7-18); eGFR NON AFRICAN AMERICAN > 90 mL/min (90-120)
[2019-04-09] MEDS ORDERED: OMNICEF300 MG PO (21:38)
[2019-04-09] MEDS ORDERED: TYLENOL #4 W/CO1 TAB PO (21:38)
[2019-04-09] MEDS ORDERED: DIFLUCAN150 MG PO (21:40)
[2019-04-09 22:16] VITALS: BP 126/75
== END 2019-04-09 22:13 | disposition home or self-care (01) ==
LOC: D.ER 20:00
PROVIDERS: Family Medicine
DX: N39.0 Urinary tract infection, site not specified (principal)

== ENCOUNTER 2019-04-24 18:01 | Emergency (ER) | payer MEDICAID ==
[~2019-04-24] VITALS: Ht 162.6 cm; Wt 85.5 kg
[~2019-04-24 18:01] MED LIST changes: +DIFLUCAN150 MG PO; +OMNICEF300 MG PO
[2019-04-24 18:10] VITALS: Ht 162.6 cm; Wt 85.5 kg
[2019-04-24 18:48] LABS: HCG SERUM NEGATIVE (NEGATIVE)
[2019-04-24 18:54] LABS: ALBUMIN 4.3 g/dL (3.4-5.0); ALKALINE PHOSPHATASE 97 U/L (46-116); ALT (SGPT) 39 U/L (10-68); BILIRUBIN - TOTAL 0.51 mg/dL (0.2-1.3); CALC OSMOLALITY 279 mosm/kg (275-300); CALCIUM 8.8 mg/dL (8.5-10.1); CARBON DIOXIDE 24.7 mmol/L (21.0-32.0); CHLORIDE - SERUM 105 mmol/L (98-107); CREATININE - SERUM 0.8 mg/dL (0.6-1.3); GLUCOSE 84 mg/dL (74-106); POTASSIUM - SERUM 3.8 mmol/L (3.5-5.1); PROTEIN - SERUM 8.3 g/dL (6.4-8.2); SODIUM 141 mmol/L (136-145); UREA NITROGEN 13 mg/dL (7-18); eGFR NON AFRICAN AMERICAN > 90 mL/min (90-120)
[2019-04-24 18:58] LABS: AMYLASE - SERUM 29 U/L (25-115); LIPASE 63 U/L (73-393)
[2019-04-24 18:59] LABS: BASOPHILS 0.3 % (0-2); EOSINOPHILS 1.8 % (0-7); HEMATOCRIT 42.8 % (36.0-48.0); HEMOGLOBIN 14.8 g/dL (12-16); LYMPHOCYTES 35.2 % (15-50); MCHC 34.6 g/dL (31.0-37.0); MCV 86.6 fL (80.0-100.0); MEAN PLATELET VOLUME 11.9 fL (7.4-10.4); MONOCYTES 10.1 % (2-11); NEUTROPHILS 52.6 % (40-80); PLATELET COUNT 231 10x3/uL (130-400); RBC 4.94 10x6/uL (4.00-5.40); RDW 13.4 % (11.5-14.5); TROPONIN-I < 0.017 ng/mL (0.000-0.060); WBC 7.3 10x3/uL (4.8-10.8)
[2019-04-24 19:28] LABS: APPEARANCE CLOUDY (CLEAR); BILIRUBIN NEGATIVE (NEGATIVE); COLOR PINK (YELLOW); GLUCOSE NEGATIVE (NEGATIVE); KETONE NEGATIVE (NEGATIVE); NITRITE NEGATIVE (NEGATIVE); PROTEIN 1+ mg/dL (NEGATIVE); SPECIFIC GRAVITY 1.015 (1.005-1.020); UROBILINOGEN NORMAL (NORMAL)
[2019-04-24 19:29] LABS: BACTERIA FEW /hpf (NONE SEEN); EPITHELIAL CELLS 0-5 /hpf (0-5); RED CELLS - URINE >50 /hpf (0-5)
[2019-04-24] MEDS ORDERED: CIPRO250 MG PO (21:10)
[2019-04-25 02:12] VITALS: BP 117/57
== END 2019-04-24 21:35 | disposition home or self-care (01) ==
LOC: D.ER 18:01
PROVIDERS: Family Medicine
DX: N39.0 Urinary tract infection, site not specified (principal); R10.2 Pelvic and perineal pain

== ENCOUNTER 2019-05-08 13:21 | Emergency (ER) | payer MEDICAID ==
[~2019-05-08] VITALS: Ht 162.6 cm; Wt 83.3 kg
[~2019-05-08 13:21] MED LIST changes: +CIPRO250 MG PO
[2019-05-08 13:24] VITALS: Ht 162.6 cm; Wt 83.3 kg
[2019-05-08] MEDS ORDERED: BACLOFEN20 M1 PO (14:33)
[2019-05-08 14:40] VITALS: BP 117/76
== END 2019-05-08 14:41 | disposition home or self-care (01) ==
LOC: D.ER 13:21
DX: M25.562 Pain in left knee (principal)

== ENCOUNTER 2019-05-12 09:40 | Day surgery (SDC) | payer MEDICAID ==
[2019-05-09 10:22] LABS: HEMATOCRIT 39.7 % (36.0-48.0); HEMOGLOBIN 13.6 g/dL (12-16); MCHC 34.3 g/dL (31.0-37.0); MCV 87.6 fL (80.0-100.0); MEAN PLATELET VOLUME 11.6 fL (7.4-10.4); RBC 4.53 10x6/uL (4.00-5.40); WBC 7.2 10x3/uL (4.8-10.8)
[~2019-05-12] VITALS: Ht 167.6 cm; Wt 84.4 kg
[~2019-05-12 09:40] MED LIST changes: +BACLOFEN20 M1 PO
[2019-05-12 09:57] VITALS: BP 120/81; Ht 167.6 cm; Wt 84.4 kg
[2019-05-12] MEDS ORDERED: PERCOCET 10-321 EAC1 PO (15:14)
--- NOTE | 2019-05-12 16:52 | NUR ---
1650 PERCOCET 10MG PO GIVEN FOR PAIN RATED 8/10 OF BURNING TYPE.
--- NOTE | 2019-05-16 09:01 | OP ---
PATIENT NAME: DAQUAN ALFORD MEDICAL RECORD: [id number] :95 LOCATION:[facility] ADMISSION DATE: SURGEON: VANNESSA CRAMER MD DATE OF OPERATION: 05/12/2019 PREOPERATIVE DIAGNOSIS: Patellofemoral syndrome of the left knee. POSTOPERATIVE DIAGNOSIS: Patellofemoral syndrome of the left knee. PROCEDURE: Left lateral release, arthroscopic. SURGEON: Vannessa Cramer MD ANESTHESIA: General. INTRAOPERATIVE COMPLICATIONS: None. 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 OPERATIVE SUMMARY IN DETAIL: After obtaining the appropriate preoperative orthopedic surgery consent as well as anesthetic consultation, evaluation, and clearance, the patient was brought to the operating room and placed on the operating table in supine position. After adequate general laryngeal mask was administered, tourniquet was placed about the proximal aspect of the left lower extremity. The left lower extremity was then prepped and draped in routine sterile fashion. At this point, preoperative time-out was done, giving the appropriate main patient identifiers well as allergies and current medications. Leg was elevated and exsanguinated. Tourniquet was inflated to 350 mmHg. Routine inferolateral portal was established followed by superomedial portal and inferomedial portal. Diagnostic arthroscopy revealed the above findings. The hook tip ablator from the [employer] [place] System was utilized to release the lateral retinaculum from just below the vastus lateralis to the inferolateral arthroscopic portal. This resulted in good lateral retinacular release. Having completed this, knee was insufflated with 30 cc of 0.25% Marcaine with epinephrine and 40 mg of Depo-Medrol. Arthroscopy portals were closed in routine interrupted fashion using 4-0 Prolene. Sterile dressings were applied. The patient was awakened and taken to recovery room in stable condition. All final needle and sponge counts were correct. TRANSINT:[id number] Voice Confirmation ID: [id number] DOCUMENT ID: [id number] VANNESSA CRAMER MD at 0901 CC: [id number] DICTATION DATE: 05/14/19 1500 ELECTRICAL UNIT REBUILDER: 05/14/19 1603 DEP [facility] [place] [id number] [place] [address]
== END 2019-05-12 17:15 | disposition home or self-care (01) ==
LOC: D.OPS 09:40 → D.PAN 12:00 → D.OPS 13:30
PROVIDERS: Anesthesiology; ATTEND Orthopaedic Surgery
DX: M22.2X2 Patellofemoral disorders, left knee (principal); Z01.812 Encounter for preprocedural laboratory examination

== ENCOUNTER 2019-05-26 19:31 | Emergency (ER) | payer MEDICAID | END 2019-05-26 20:14 | disposition left against medical advice (07) | LOC: D.ER 19:31 | DX: M25.569 Pain in unspecified knee (principal) ==

== ENCOUNTER 2019-07-27 21:51 | Emergency (ER) | payer MEDICARE ==
[~2019-07-27] VITALS: Ht 167.6 cm; Wt 81.2 kg
[2019-07-27 21:54] VITALS: Ht 167.6 cm; Wt 81.2 kg
[2019-07-27 22:14] LABS: APPEARANCE CLEAR (CLEAR); BILIRUBIN NEGATIVE (NEGATIVE); COLOR YELLOW (YELLOW); GLUCOSE NEGATIVE (NEGATIVE); KETONE NEGATIVE (NEGATIVE); NITRITE NEGATIVE (NEGATIVE); PROTEIN TRACE mg/dL (NEGATIVE); UROBILINOGEN NORMAL (NORMAL)
[2019-07-27 22:16] LABS: BACTERIA MODERATE /hpf (NEGATIVE); MUCUS >1+ /lpf (NONE SEEN); RED CELLS - URINE 0-5 /hpf (0-5); WHITE CELLS - URINE 0-5 /hpf (NEGATIVE)
[2019-07-27 22:19] LABS: CALC OSMOLALITY 272 mosm/kg (275-300); CALCIUM 8.7 mg/dL (8.5-10.1); CARBON DIOXIDE 28.3 mmol/L (21.0-32.0); CHLORIDE - SERUM 104 mmol/L (98-107); CREATININE - SERUM 0.6 mg/dL (0.6-1.3); GLUCOSE 94 mg/dL (74-106); POTASSIUM - SERUM 3.7 mmol/L (3.5-5.1); SODIUM 137 mmol/L (136-145); UREA NITROGEN 9 mg/dL (7-18); eGFR NON AFRICAN AMERICAN > 90 mL/min (90-120)
[2019-07-27 22:22] LABS: HCG URINE POSITIVE (NEGATIVE)
[2019-07-27 22:23] LABS: BASOPHILS 0.4 % (0-2); EOSINOPHILS 3.7 % (0-7); HEMATOCRIT 38.6 % (36.0-48.0); HEMOGLOBIN 13.3 g/dL (12-16); IMMATURE GRANULOCYTES 0.1 % (0-5); LYMPHOCYTES 35.8 % (15-50); MCH 30.1 pg (26.0-34.0); MCHC 34.5 g/dL (31.0-37.0); MCV 87.3 fL (80.0-100.0); MEAN PLATELET VOLUME 10.8 fL (7.4-10.4); MONOCYTES 7.6 % (2-11); NEUTROPHILS 52.4 % (40-80); PLATELET COUNT 269 10x3/uL (130-400); RBC 4.42 10x6/uL (4.00-5.40); RDW 13.6 % (11.5-14.5); WBC 8.5 10x3/uL (4.8-10.8)
[2019-07-27 22:48] LABS: ALBUMIN 3.4 g/dL (3.4-5.0); ALKALINE PHOSPHATASE 76 U/L (46-116); ALT (SGPT) 28 U/L (10-68); AMYLASE - SERUM 25 U/L (25-115); BILIRUBIN - TOTAL 0.26 mg/dL (0.2-1.3); HCG - QUANTITATIVE (MATERNAL) 12348 mIU/mL; LIPASE 73 U/L (73-393); PROTEIN - SERUM 6.9 g/dL (6.4-8.2); TROPONIN-I < 0.017 ng/mL (0.000-0.060)
[2019-07-28] MEDS ORDERED: FLUTICASONE PRO16 GM NASAL (00:42)
[2019-07-28 00:45] VITALS: BP 120/72
== END 2019-07-28 00:47 ==
LOC: D.ER 21:51
PROVIDERS: Family Medicine
DX: O26.891 Other specified pregnancy related conditions, first trimester (principal); Z3A.01 Less than 8 weeks gestation of pregnancy; R10.9 Unspecified abdominal pain

== ENCOUNTER 2019-07-31 01:29 | Emergency (ER) | payer MEDICARE ==
[~2019-07-31] VITALS: Ht 167.6 cm; Wt 79.5 kg
[~2019-07-31 01:29] MED LIST changes: +FLUTICASONE PRO16 GM NASAL
[2019-07-31 01:34] VITALS: Ht 167.6 cm; Wt 79.5 kg
[2019-07-31 01:53] LABS: BASOPHILS 0.1 % (0-2); EOSINOPHILS 3.1 % (0-7); HEMATOCRIT 39.8 % (36.0-48.0); HEMOGLOBIN 13.7 g/dL (12-16); IMMATURE GRANULOCYTES 0.2 % (0-5); LYMPHOCYTES 34.6 % (15-50); MCH 30.2 pg (26.0-34.0); MCHC 34.4 g/dL (31.0-37.0); MCV 87.7 fL (80.0-100.0); MONOCYTES 6.8 % (2-11); NEUTROPHILS 55.2 % (40-80); PLATELET COUNT 282 10x3/uL (130-400); RBC 4.54 10x6/uL (4.00-5.40); RDW 13.4 % (11.5-14.5); WBC 9.3 10x3/uL (4.8-10.8)
[2019-07-31] MEDS ORDERED: ALBUTEROL2.5 MG/3 M INH (01:57)
[2019-07-31] MEDS ORDERED: PRENAVITE1 TAB PO (01:58)
[2019-07-31] MEDS ORDERED: PHENERGAN25 M1 PO (01:58)
[2019-07-31 02:02] LABS: CALC OSMOLALITY 273 mosm/kg (275-300); CALCIUM 9.1 mg/dL (8.5-10.1); CHLORIDE - SERUM 103 mmol/L (98-107); CREATININE - SERUM 0.7 mg/dL (0.6-1.3); GLUCOSE 95 mg/dL (74-106); POTASSIUM - SERUM 3.2 mmol/L (3.5-5.1); SODIUM 138 mmol/L (136-145); UREA NITROGEN 6 mg/dL (7-18); eGFR NON AFRICAN AMERICAN > 90 mL/min (90-120)
[2019-07-31 02:03] LABS: APPEARANCE CLEAR (CLEAR); BILIRUBIN NEGATIVE (NEGATIVE); COLOR STRAW (YELLOW); GLUCOSE NEGATIVE (NEGATIVE); KETONE NEGATIVE (NEGATIVE); NITRITE NEGATIVE (NEGATIVE); PROTEIN NEGATIVE (NEGATIVE); SPECIFIC GRAVITY 1.005 (1.005-1.020); UROBILINOGEN NORMAL (NORMAL)
[2019-07-31 02:03] LABS: HCG SERUM POSITIVE (NEGATIVE)
[2019-07-31] MEDS ORDERED: KEFLEX500 MG PO (02:04)
[2019-07-31] MEDS ORDERED: MONISTAT 31 EACH VG (02:04)
[2019-07-31] MEDS ORDERED: MACROBID100 MG PO (02:04)
[2019-07-31 02:28] LABS: ALBUMIN 3.6 g/dL (3.4-5.0); ALKALINE PHOSPHATASE 73 U/L (46-116); ALT (SGPT) 21 U/L (10-68); BILIRUBIN - TOTAL 0.34 mg/dL (0.2-1.3); HCG - QUANTITATIVE (MATERNAL) 23857 mIU/mL; PROTEIN - SERUM 7.2 g/dL (6.4-8.2)
[2019-07-31 03:12] VITALS: BP 122/77
== END 2019-07-31 03:11 | disposition home or self-care (01) ==
LOC: D.ER 01:29
PROVIDERS: Family Medicine
DX: O23.40 Unspecified infection of urinary tract in pregnancy, unspecified trimester (principal); O20.0 Threatened abortion

== ENCOUNTER 2019-08-10 17:26 | Emergency (ER) | payer MEDICARE ==
[~2019-08-10] VITALS: Ht 167.6 cm; Wt 90.9 kg
[~2019-08-10 17:26] MED LIST changes: +ALBUTEROL2.5 MG/3 M INH; +MONISTAT 31 EACH VG; +PHENERGAN25 M1 PO
[2019-08-10 17:28] VITALS: Ht 167.6 cm; Wt 90.9 kg
[2019-08-10 18:05] LABS: BASOPHILS 0.1 % (0-2); EOSINOPHILS 0.4 % (0-7); HEMOGLOBIN 14.2 g/dL (12-16); IMMATURE GRANULOCYTES 0.2 % (0-5); LYMPHOCYTES 13.5 % (15-50); MCH 30.1 pg (26.0-34.0); MCHC 33.8 g/dL (31.0-37.0); MCV 89.2 fL (80.0-100.0); MEAN PLATELET VOLUME 11.9 fL (7.4-10.4); MONOCYTES 5.6 % (2-11); NEUTROPHILS 80.2 % (40-80); PLATELET COUNT 240 10x3/uL (130-400); RBC 4.71 10x6/uL (4.00-5.40); RDW 13.2 % (11.5-14.5); WBC 11.1 10x3/uL (4.8-10.8)
[2019-08-10 18:09] LABS: CALC OSMOLALITY 274 mosm/kg (275-300); CALCIUM 8.6 mg/dL (8.5-10.1); CARBON DIOXIDE 25.4 mmol/L (21.0-32.0); CHLORIDE - SERUM 105 mmol/L (98-107); CREATININE - SERUM 0.5 mg/dL (0.6-1.3); GLUCOSE 88 mg/dL (74-106); SODIUM 139 mmol/L (136-145); UREA NITROGEN 7 mg/dL (7-18); eGFR NON AFRICAN AMERICAN > 90 mL/min (90-120)
[2019-08-10 18:36] LABS: ALBUMIN 3.8 g/dL (3.4-5.0); ALKALINE PHOSPHATASE 69 U/L (46-116); ALT (SGPT) 21 U/L (10-68); BILIRUBIN - TOTAL 0.54 mg/dL (0.2-1.3); PROTEIN - SERUM 7.5 g/dL (6.4-8.2)
[2019-08-10 19:19] LABS: APPEARANCE CLEAR (CLEAR); BILIRUBIN NEGATIVE (NEGATIVE); COLOR YELLOW (YELLOW); GLUCOSE NEGATIVE (NEGATIVE); KETONE MODERATE mg/dL (NEGATIVE); NITRITE NEGATIVE (NEGATIVE); PROTEIN TRACE mg/dL (NEGATIVE); UROBILINOGEN NORMAL (NORMAL)
[2019-08-10 19:21] LABS: BACTERIA MODERATE /hpf (NEGATIVE); EPITHELIAL CELLS 0-5 /hpf (0-5); MUCUS >1+ /lpf (NONE SEEN); RED CELLS - URINE 0-5 /hpf (0-5); WHITE CELLS - URINE 0-5 /hpf (NEGATIVE)
[2019-08-10 20:06] LABS: HCG - QUANTITATIVE (MATERNAL) 80744 mIU/mL
[2019-08-10 20:42] VITALS: BP 100/60
== END 2019-08-10 20:42 | disposition home or self-care (01) ==
LOC: D.ER 17:26
PROVIDERS: Emergency Medicine
DX: O21.0 Mild hyperemesis gravidarum (principal); Z3A.08 8 weeks gestation of pregnancy; O23.41 Unspecified infection of urinary tract in pregnancy, first trimester; J45.909 Unspecified asthma, uncomplicated; Z90.721 Acquired absence of ovaries, unilateral; Z34.81 Encounter for supervision of other normal pregnancy, first trimester

== ENCOUNTER 2019-08-26 15:07 | Outpatient (CLI) | payer MEDICARE ==
[2019-08-10 17:28] VITALS: BMI 32.3
--- NOTE | 2019-08-26 12:35 | NUR ---
18G PIV INITIATED TO PT'S RIGHT AC x1 ATTEMPT BY THIS RN. PT HUGO WELL. LABS DRAWN WITH IV START. IV FLUSHED WITH NS.
[2019-08-26 15:40] VITALS: BP 117/74
--- NOTE | 2019-08-26 16:02 | NUR ---
"BANANA BAG" INITIATED TO RIGHT AC PIV PER ORDER, INFUSING WELL.
--- NOTE | 2019-08-26 16:05 | NUR ---
PT REFUSES VITAMIN, STATES IT WILL MAKE HER VOMIT. C/O ABD PAIN AND REQUESTING PAIN MED. PT ALSO WANTS "SOMETHING FOR SLEEP". WILL NOTIFY DR WISE.
[2019-08-26 16:38] VITALS: BP 108/65
--- NOTE | 2019-08-26 16:45 | NUR ---
BEHAVIORAL HEALTH RN TO ROOM AT THIS TIME FOR EVAL.
[2019-08-26 16:54] LABS: APPEARANCE CLEAR (CLEAR); BILIRUBIN NEGATIVE (NEGATIVE); COLOR YELLOW (YELLOW); GLUCOSE NEGATIVE (NEGATIVE); KETONE NEGATIVE (NEGATIVE); NITRITE NEGATIVE (NEGATIVE); PROTEIN NEGATIVE (NEGATIVE); UROBILINOGEN NORMAL (NORMAL)
[2019-08-26 16:57] LABS: BASOPHILS 0.2 % (0-2); EOSINOPHILS 0.7 % (0-7); HEMOGLOBIN 13.6 g/dL (12-16); IMMATURE GRANULOCYTES 0.1 % (0-5); LYMPHOCYTES 22.8 % (15-50); MCH 30.1 pg (26.0-34.0); MCV 88.5 fL (80.0-100.0); MEAN PLATELET VOLUME 11.7 fL (7.4-10.4); MONOCYTES 5.3 % (2-11); NEUTROPHILS 70.9 % (40-80); PLATELET COUNT 217 10x3/uL (130-400); RBC 4.52 10x6/uL (4.00-5.40); RDW 13.3 % (11.5-14.5); WBC 8.6 10x3/uL (4.8-10.8)
--- NOTE | 2019-08-26 17:03 | NUR ---
DR KISER NOTIFIED OF PATIENT'S BEHAVIOR AND ASSESSMENT RESULTS. PT IS A LOW RISK PER DR. KISER. DR KISER STATED TO GIVE RESOURCES AT DISCHARGE. PT ABLE TO STATE A NUMBER OF REASONS FOR LIVING, IN PARTICULAR HER CHILDREN AND FAMILY AND IS LOOKING FORWARD TO THE OF THIS CHILD. PATIENT DENIES ANY SUICIDAL THOUGHTS AND HAS A POSITIVE OUTLOOK ON LIFE.
[2019-08-26 17:18] LABS: CALC OSMOLALITY 272 mosm/kg (275-300); CALCIUM 8.6 mg/dL (8.5-10.1); CARBON DIOXIDE 23.3 mmol/L (21.0-32.0); CHLORIDE - SERUM 104 mmol/L (98-107); CREATININE - SERUM 0.4 mg/dL (0.6-1.3); GLUCOSE 87 mg/dL (74-106); POTASSIUM - SERUM 3.5 mmol/L (3.5-5.1); SODIUM 138 mmol/L (136-145); UREA NITROGEN 6 mg/dL (7-18); eGFR NON AFRICAN AMERICAN > 90 mL/min (90-120)
[2019-08-26 17:23] LABS: ALBUMIN 3.7 g/dL (3.4-5.0); ALKALINE PHOSPHATASE 58 U/L (46-116); ALT (SGPT) 16 U/L (10-68); BILIRUBIN - TOTAL 0.29 mg/dL (0.2-1.3); PROTEIN - SERUM 7.3 g/dL (6.4-8.2)
--- NOTE | 2019-08-26 17:29 | NUR ---
DR WISE ON UNIT, NOTIFIED OF PT'S REQUESTS AND COMPLAINTS AND THAT SHE DID NOT WANT TO TAKE VITAMIN. DR WISE ORDERS TO ENCOURAGE PT TO TRY TO TAKE VITAMIN, AND SHE MAY HAVE 325MG TYLENOL PO Q6HPRN PAIN, AND SHE HAS ORDERED UNISOM FOR SLEEP.
--- NOTE | 2019-08-26 18:00 | NUR ---
PT IS AGREEABLE TO VITAMIN AND TYLENOL. WILL NOTIFY PHARMACY OF NEED FOR VITAMIN NOT STOCKED IN [facility].
[2019-08-26 18:34] VITALS: BP 115/76
--- NOTE | 2019-08-26 18:35 | NUR ---
PHARMACY DELIVERS VIT B6. PT ADMIN VITAMIN AND TYLENOL WITH SIP OF WATER PER ORDER.
--- NOTE | 2019-08-26 19:00 | NUR ---
REPORT TO PM SHIFT.
== END 2019-08-27 14:40 | disposition home or self-care (01) ==
LOC: D.LDO 15:07 → D.LD 23:48 → D.LDO 08-27 14:40
PROVIDERS: ATTEND Student in an Organized Health Care Education/Training Program
DX: O26.899 Other specified pregnancy related conditions, unspecified trimester (principal); Z3A.00 Weeks of gestation of pregnancy not specified; E86.0 Dehydration